=== PATIENT | female | born 1970 | race Caucasian/White ===

== ENCOUNTER → 2020-06-19 15:04 | Outpatient (CLI) | payer OTHER, SELFPAY ==
--- NOTE | ~2020-06-19 | US_ITS ---
US renal BI 06/19/2020 15:25 Procedure: Realtime transabdominal ultrasound of the kidneys and bladder. Indication: Dysuria. UTI. Comparison: No prior studies for comparison. Findings: Renal echotexture is normal bilaterally without hydronephrosis, contour deforming mass or r enal calculus. The right kidney measures 10.6 cm and left kidney measures 11.1 cm. Bladder within no rmal limits. Impression: 1: Unremarkable renal ultrasound. No stones, masses or hydronephrosis. Reviewed, dictated and finalized at location A. Impression: 1: Unremarkable renal ultrasound. No stones, masses or hydronephrosis.
== END ==
PROVIDERS: PCP Family Medicine; Visit Provider Family Medicine
DX: R30.0 Dysuria (principal)
CPT/HCPCS: 76775

== ENCOUNTER → 2021-01-03 14:51 | Outpatient (CLI) | payer OTHER, SELFPAY ==
--- NOTE | ~2021-01-03 | MM_ITS ---
EXAMINATION: MM screening jesús BI w hany HISTORY: Screening mammogram TECHNIQUE: Craniocaudal and mediolateral oblique 3-D tomosynthesis images were obtained and synthetic 2-D images were generated. CAD analysis was submitted and interpreted. COMPARISON: 09/13/2015 bilateral diagnostic digital mammogram and limited left breast ultrasound 06/14/2014, 05/24/2013 bilateral digital screening mammogram BREAST PARENCHYMAL COMPOSITION: There are scattered areas of fibroglandular density. FINDINGS: There are interval bilateral breast masses, some partially obscured by surrounding fibrogla ndular stroma. Bilateral diagnostic mammography is recommended as well as bilateral breast ultrasound examination. IMPRESSION: 1. Bilateral breast masses 2. Bilateral diagnostic mammography and bilateral breast ultrasound examination are recommended. BI-RADS Category 0: Incomplete: Needs additional imaging evaluation. Reviewed, dictated and finalized at location A. 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
== END ==
PROVIDERS: PCP Family Medicine; Visit Provider Obstetrics & Gynecology
DX: Z12.31 Encounter for screening mammogram for malignant neoplasm of breast (principal); R92.8 Other abnormal and inconclusive findings on diagnostic imaging of breast
CPT/HCPCS: 77063; 77067

== ENCOUNTER → 2021-01-25 07:47 | Outpatient (CLI) | payer OTHER, SELFPAY ==
--- NOTE | ~2021-01-25 | MMUS_ITS ---
EXAMINATION: MM diagnostic mammo BI, US breast RT limited, US breast LT complete HISTORY: Bilateral breast masses on screening mammogram TECHNIQUE: Additional 3-D tomosynthesis images of the breasts were performed and synthetic 2-D images were generated. CAD analysis was submitted and interpreted. High resolution limited right and comple te left including subareolar breast ultrasound was performed. COMPARISON: 01/03/2021, 09/13/2015, 06/14/2014 BREAST PARENCHYMAL COMPOSITION: The breasts are heterogeneously dense, which may obscure small masses . FINDINGS: MAMMOGRAPHIC FINDINGS: Left breast: Spot compression views of the breasts demonstrate multiple equal and low-density obscure d masses throughout the breast. The largest identified mass measures 1.6 cm at the 6:00 location in t he posterior third of the breast. Right breast: There are obscured low density masses in the outer breast, the largest of which measure s 1.7 cm in the middle third of the breast at the 6:00 location ULTRASOUND: Left breast: There are multiple cysts in the breast, the largest of which measures 1.5 cm at the 1:00 location. There is a 1.4 cm cluster of microcysts at the 10:00 location 5 cm from the nipple. Right breast: There are multiple cysts of the breast, the largest of which measures 1.7 cm at the 8:0 0 location. IMPRESSION: 1. Multiple cysts of the breasts without mammographic or sonographic evidence of malignancy. 2. Recommend routine screening mammography in one year. BI-RADS Category 2: Benign finding(s). Reviewed, dictated and finalized at location A. IMPRESSION: 1. Multiple cysts of the breasts without mammographic or sonographic evidence o f malignancy. 2. Recommend routine screening mammography in one year. BI-RADS Category 2: Benign finding(s). IMPRESSION: 1. Multiple cysts of the breasts without mammographic or sonographic evidence o f malignancy. 2. Recommend routine screening mammography in one year. BI-RADS Category 2: Benign finding(s).
== END ==
PROVIDERS: PCP Family Medicine; Visit Provider Obstetrics & Gynecology
DX: R92.8 Other abnormal and inconclusive findings on diagnostic imaging of breast (principal)
CPT/HCPCS: 76641; 76642; 77066

== ENCOUNTER 2021-09-05 00:14 | Day surgery (SDC) | payer OTHER, SELFPAY ==
[2021-08-21 12:48] VITALS: BMI 34.5
--- NOTE | 2021-09-04 14:21 | P.PNAN_ITS ---
Anes - Initial Pre Proc Eval Procedure: Operation Date: 09/05/21 08:00 Proposed Procedures p Screening Colonoscopy - Faisal Hart MD Date/Time: 09/04/21 14:21 Surgeon: Faisal Hart MD Pre Op Diagnosis: neoplasm screening Patient Data Age: 51 Gender: F Height: 1.7 m Weight: 100 kg Allergies Allergy/AdvReac Type Severity Reaction Status Date / Time hydrocodone Allergy Unknown Hypertensio Verified 09/05/21 06:45 n Penicillins Allergy Unknown Rash Verified 09/05/21 06:45 Home Medications Medication Instructions Recorded Confirmed Type No Home Medications 04/23/21 09/05/21 History Patient hx anesthesia problems: none Family hx anesthesia problems: none Results Review: All pre-operative results and documents have been reviewed as part of the pre-operative evaluation. [facility] Past Medical History Medical History (Updated 09/04/21 @ 16:15 by Faisal Hart MD) Essential hypertension Gastro-esophageal reflux disease with esophagitis, without bleeding Menorrhagia, premenopausal Microcytic anemia Obesity Scoliosis (and kyphoscoliosis), idiopathic Family History Family History Mother Family history of thyroid disease Hypertension Family history of malignant neoplasm of breast in first degree relative, Onset Age: 40 Father Hypertension Family history of cardiovascular disease, Onset Age: 60 Acute myocardial infarction, Onset Age: 64 Family history of malignant neoplasm Grandparent Family history of cardiovascular disease, Onset Age: 60 Malignant neoplasm of prostate Other Family history of malignant neoplasm of breast No family history of cardiovascular disease Social History Social History Alcohol intake: never Substance use type: does not use Living arrangements: with family Anes - Eval Final PreProcedure Day of Procedure 09/04/21 14:21 Patient weight: obese Heart: regular rate and rhythm Lungs: clear to auscultation and normal air movement Airway: Mallampati scale class II Neurological: alert and oriented Last oral intake: >/= 8 hours ASA classification: III Emergent: no Anesthetic plan: proceed Anesthesia type and monitoring: general GIVS Results Review: All pre-operative results and documents have been reviewed as part of the pre-operative evaluation. Informed Consent: The patient's anesthetic plan and its attendant risks and benefits were discussed with the patient/family/POA. Questions were solicited and answers provided to the satisfaction of the patient/family/POA.
--- NOTE | 2021-09-04 16:14 | PM.HPGS ---
History of Present Illness History of Present Illness Consent: Risks, benefits, and alternatives have been discussed and questions answered. Patient agrees to proceed with procedure. Chief complaint: neoplasm screening Narrative: Melania Boykin is a 51 year old female Referred for colon cancer screening. Her mother and several other family members have had breast cancer Review of Systems Review of Systems: All systems reviewed & are unremarkable except as noted in HPI and below PMFSH Past Medical History Medical History Essential hypertension Gastro-esophageal reflux disease with esophagitis, without bleeding Menorrhagia, premenopausal Microcytic anemia Obesity Scoliosis (and kyphoscoliosis), idiopathic Family History Family History Mother Family history of thyroid disease Hypertension Family history of malignant neoplasm of breast in first degree relative, Onset Age: 40 Father Hypertension Family history of cardiovascular disease, Onset Age: 60 Acute myocardial infarction, Onset Age: 64 Family history of malignant neoplasm Grandparent Family history of cardiovascular disease, Onset Age: 60 Malignant neoplasm of prostate Other Family history of malignant neoplasm of breast No family history of cardiovascular disease Social History Social History Alcohol intake: never Substance use type: does not use Living arrangements: with family Meds Home Medications and Allergies Home Medications Medication Instructions Recorded Confirmed Type No Home Medications 04/23/21 09/05/21 History Allergies Allergy/AdvReac Type Severity Reaction Status Date / Time hydrocodone Allergy Unknown Hypertensio Verified 09/05/21 07:31 n Penicillins Allergy Unknown Rash Verified 09/05/21 07:31 Exam Resp: Auscultation: clear to auscultation bilaterally Cardio: Rate: regular rate Rhythm: regular rhythm GI: GI Palp: Yes Soft to palpation and No Tenderness to palpation present (GI) Assessment and Plan Assessment and plan (1) Colon cancer screening: Code(s): Z12.11 - Encounter for screening for malignant neoplasm of colon Status: Acute Assessment and Plan: Colonoscopy with possible biopsy or polypectomy or cautery or injection of substances.
[2021-09-05 06:45] VITALS: BP 144/100; PULSE 101; RESP 18; TEMP 36.3; O2SAT 99
[2021-09-05] MEDS: LACTATED RINGERS 1,000 ML 150 ML IV CONT (07:06)
[2021-09-05 08:12] VITALS: BP 119/80; PULSE 84; RESP 24; O2SAT 100
[2021-09-05 08:22] VITALS: BP 133/80; PULSE 83; RESP 18; O2SAT 100
[2021-09-05 08:32] VITALS: BP 134/87; PULSE 78; RESP 21; O2SAT 100
== END 2021-09-05 08:43 | disposition home or self-care (01) ==
PROVIDERS: PCP Family Medicine; Visit Provider Internal Medicine Gastroenterology
PROC: 0DJD8ZZ Inspection of Lower Intestinal Tract, Via Natural or Artificial Opening Endoscopic (ICD-10-PCS; CPT 45378; principal; 2021-09-05 08:00)
DX: Z12.11 Encounter for screening for malignant neoplasm of colon (principal); E66.9 Obesity, unspecified; Z68.34 Body mass index [BMI] 34.0-34.9, adult
CPT/HCPCS: 45378; J2704; J7120

== ENCOUNTER 2021-12-27 15:20 | Emergency (ER) | payer OTHER, SELFPAY ==
--- NOTE | ~2021-12-27 | XR_ITS ---
EXAMINATION: XR chest 2V 12/27/2021 16:11 INDICATION: Weakness and left arm pain PROCEDURE: 2 view chest COMPARISON: 06/14/2007 FINDINGS: The lungs are clear. The cardiomediastinal silhouette is within normal limits. There are no pleural effusions. There is no pneumothorax suspected. IMPRESSION: 1: NO ACUTE CARDIOPULMONARY DISEASE. Reviewed, dictated and finalized at location A. 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
--- NOTE | 2021-12-27 15:24 | ECG_ITS ---
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
[2021-12-27 15:31] VITALS: BP 153/98; PULSE 102; RESP 18; TEMP 37.1; O2SAT 100
[2021-12-27 16:07] LABS: Basophils Percent Auto 0.6 % (0.2-1.2); Eosinophils Absolute Auto 0.1 K/mm3 (0-0.3); Eosinophils Percent Auto 1.3 % (0-4.4); Hematocrit 41.3 % (37.0-47.0); Hemoglobin 13.4 g/dL (12.0-15.0); Immature Granulocyte Absolute 0.01 K/mm3 (0.00-0.031); Immature Granulocyte Percent A 0.2 % (0-0.5); Lymphocytes Absolute Auto 1.42 K/mm3 (0.9-3.2); Lymphocytes Percent Auto 26.3 % (18.3-44.2); Mean Corpuscular HGB Conc 32.4 g/dl (32-36); Mean Corpuscular Volume 86.4 fl (80-100); Monocytes Absolute Auto 0.3 K/mm3 (0.1-0.6); Monocytes Percent Auto 6.1 % (2.6-8.5); Neutrophils Absolute Auto 3.5 K/mm3 (1.3-6.7); Neutrophils Percent Auto 65.5 % (45.5-73.1); Platelet Count Result 272 k/mm3 (150-375); Red Blood Count 4.78 M/mm3 (4.2-5.4); Red Cell Distribution Width 12.6 % (11.5-14.5); White Blood Count 5.4 K/mm3 (4.5-10.0)
[2021-12-27 16:17] LABS: Alanine Aminotransferase 17 U/L (4-35); Albumin Level 4.2 g/dL (3.5-5.1); Alkaline Phosphatase 83 U/L (38-126); Anion Gap 8 mmol/L (8-16); Aspartate Amino Transferase 31 U/L (14-36); Bilirubin,Total 0.9 mg/dL (0.2-1.3); Blood Urea Nitrogen 14 mg/dL (7-17); Calcium 8.5 mg/dL (8.4-10.2); Carbon Dioxide 25 mmol/L (22-30); Chloride 105 mmol/L (98-107); Estimated CRCL calculation 80 ml/min; Estimated Glomerular Filt Rate > 60; Glucose 97 mg/dL (65-110); Potassium 3.4 mmol/L (3.4-5.0); Sodium 138 mmol/L (137-145)
[2021-12-27 16:28] LABS: Troponin I < 0.012 ng/mL (0.000-0.034)
[2021-12-27 16:48] LABS: Add Urine Microscopic? YES; Appearance Urine Cloudy (Clear); Bacteria Urine Trace /hpf; Bilirubin Urine Negative (Negative); Blood Urine 1+ (Negative); Color Urine Yellow (Yellow); Glucose Urine UA Negative (Negative); Ketones Urine Negative (Negative); Leukocyte Esterase Ur 1+ LEU/UL (Negative); Mucus Urine Heavy /lpf; Nitrate Urine Negative (Negative); Protein Urine Negative (Negative); Specific Grav Ur 1.027 (1.001-1.035); Squamous Epithelial Cell Urine Few /hpf (Few); Urobilinogen Urine Negative mg/dL (<2.0)
--- NOTE | 2021-12-27 17:10 | ED.WEAKNESS ---
HPI - Weakness General Chief complaint: Weakness Stated complaint: Weakness Time Seen by Provider: 12/27/21 15:56 Source: patient History of Present Illness HPI Narrative: Patient presents with dizziness. Patient reports she was walking up the stairs at school felt lightheaded and queasy there she came to the ER for evaluation. On arrival she reports she is feeling improved. Reports she has had intermittent dizzy spells without clear triggering events. That are not always associated with physical activity or position change. She does note them worse in the morning. Patient also reports she feels like she is going through menopause unsure of as a contributing factor. Reports recently she has been feeling well no recent changes appetite no nausea vomiting diarrhea or urinary symptoms denies any chest pain shortness of breath or abdominal pain associated with her events. She did not fall or strike her head. Denies any recent hospitalizations history of blood clots, recent surgeries, recent long travel, recent family history of sudden cardiac . Related Data Allergies Allergy/AdvReac Type Severity Reaction Status Date / Time hydrocodone Allergy Unknown Hypertensio Verified 09/05/21 07:31 n Penicillins Allergy Unknown Rash Verified 09/05/21 07:31 Review of Systems Review of Systems: CONSTITUTIONAL: Denies fever, chills, or sweats. EYES: Denies visual changes, redness, or discharge. ENT: Denies rhinorrhea, congestion, sore throat, or otalgia. CARDIOVASCULAR: Denies chest pain, palpitations, or edema. RESPIRATORY: Denies cough or dyspnea. GASTROINTESTINAL: Denies abdominal pain, nausea, vomiting, or diarrhea. GENITOURINARY: Denies dysuria or hematuria. SKIN: Denies rash or itching. MUSCULOSKELETAL: Denies back pain, joint pain, or myalgia. NEUROLOGIC: Denies headache, numbness, or focal weakness. PSYCHIATRIC: Denies anxiety or depression. All systems reviewed & are unremarkable except as noted in HPI and below PMFSH Past Medical History Medical History Essential hypertension Gastro-esophageal reflux disease with esophagitis, without bleeding Menorrhagia, premenopausal Microcytic anemia Obesity Scoliosis (and kyphoscoliosis), idiopathic Family History Family History Mother Family history of thyroid disease Hypertension Family history of malignant neoplasm of breast in first degree relative, Onset Age: 40 Father Hypertension Family history of cardiovascular disease, Onset Age: 60 Acute myocardial infarction, Onset Age: 64 Family history of malignant neoplasm Grandparent Family history of cardiovascular disease, Onset Age: 60 Malignant neoplasm of prostate Other Family history of malignant neoplasm of breast No family history of cardiovascular disease Social History Social History Alcohol intake: never Substance use type: does not use Exam Narrative: GENERAL: Well-appearing, well-nourished, and in no acute distress. HEAD: Normocephalic, atraumatic. EYES: PERRLA and EOMI. ENT: Nares clear, no rhinorrhea or epistaxis. Mucous membranes moist. NECK: Supple. No masses. No JVD CHEST: Clear to auscultation. No respiratory distress. No wheezes rales or rhonchi HEART: Regular rate and rhythm. No murmur heard. Normal peripheral pulses. ABDOMEN: Soft, nontender, nondistended, normal active bowel sounds. EXTREMITIES: Normal range of motion. No edema. SKIN: Warm, dry, no rash. NEURO: No focal deficits. Alert and oriented x3. PSYCH: Normal mood and affect. Course Reevaluation(s) Reevaluation #1: Patient continues to feel well results and plan reviewed with patient. Patient is comfortable outpatient plan. Patient educated on hypertension Date: 12/27/21 Time: 17:13 Vital Signs Vital signs: Vital Signs Temperature 37.1 C
[2021-12-27 17:14] VITALS: BP 138/78; PULSE 76; RESP 18; O2SAT 100
[2021-12-27 17:31] VITALS: BP 142/78; PULSE 78; RESP 18; O2SAT 98
== END 2021-12-27 17:31 | disposition home or self-care (01) ==
PROVIDERS: General Practice; Emergency Provider Emergency Medicine; PCP Family Medicine
DX: R42 Dizziness and giddiness (principal); I10 Essential (primary) hypertension; K21.00 Gastro-esophageal reflux disease with esophagitis, without bleeding; D50.9 Iron deficiency anemia, unspecified; E66.9 Obesity, unspecified; Z68.35 Body mass index [BMI] 35.0-35.9, adult; M41.20 Other idiopathic scoliosis, site unspecified; R94.31 Abnormal electrocardiogram [ECG] [EKG]
CPT/HCPCS: 36415; 71046; 80053; 81001; 84484; 85025; 87086; 87088; 93005; 99284

== ENCOUNTER → 2022-02-26 11:56 | Outpatient (CLI) | payer OTHER, SELFPAY ==
--- NOTE | ~2022-02-26 | MM_ITS ---
EXAMINATION: MM screening jesús BI w hany HISTORY: Screening mammogram TECHNIQUE: Craniocaudal and mediolateral oblique 3-D tomosynthesis images were obtained and synthetic 2-D images were generated. CAD analysis was submitted and interpreted. COMPARISON: 01/25/2021 Limited right and complete left breast ultrasound bilateral diagnostic mammogram 01/03/2021 bilateral screening mammogram BREAST PARENCHYMAL COMPOSITION: There are scattered areas of fibroglandular density. FINDINGS: There are scattered bilateral low density masses with halo sign, consistent with bilateral benign lesions, likely cysts. There are multiple bilateral scattered benign calcifications. There is no evidence of suspicious mass, calcification, or architectural distortion to suggest malign consuelo in either breast. There has been no suspicious interval change. IMPRESSION: 1. No benign relatively stable low-density circumscribed masses with halo signs, most consistent with cyst. Scattered bilateral benign calcifications. No mammographic evidence of malignancy. 2. Recommend routine screening mammography in one year. BI-RADS Category 2: Benign Reviewed, dictated and finalized at location A. IMPRESSION: 1. No benign relatively stable low-density circumscribed masses with halo signs , most consistent with cyst. Scattered bilateral benign calcifications. No mamm ographic evidence of malignancy. 2. Recommend routine screening mammography in one year. BI-RADS Category 2: Benign
== END ==
PROVIDERS: PCP Family Medicine; Visit Provider Obstetrics & Gynecology
DX: Z12.31 Encounter for screening mammogram for malignant neoplasm of breast (principal)
CPT/HCPCS: 77063; 77067

== ENCOUNTER 2023-05-21 08:07 | Outpatient (CLI) | payer OTHER, SELFPAY ==
--- NOTE | 2023-05-21 08:30 | ECG_ITS ---
Measurements Intervals [place] Rate: 81 P: 38 [place]: 169 QRS: 2 QRSD: 91 T: 8 QT: 366 QTc: 427 Interpretive Statements SINUS RHYTHM LOW QRS VOLTAGE IN PRECORDIAL LEADS CONSIDER INFERIOR INFARCT, AGE INDETERMINATE BASELINE ARTIFACT- I, II, AVL, AVF ABNORMAL ECG COMPARED TO ECG 12/27/2021 15:26:54 NO SIGNIFICANT CHANGES Electronically Signed On 05-21-2023 8:46:44 CDT by Kash Cheung D.O.
[2023-05-21 08:51] LABS: Alanine Aminotransferase 19 U/L (6-35); Albumin Level 3.9 g/dL (3.5-5.1); Alkaline Phosphatase 75 U/L (38-126); Anion Gap 8 mmol/L (8-16); Aspartate Amino Transferase 23 U/L (14-36); Bilirubin,Total 0.9 mg/dL (0.2-1.3); Blood Urea Nitrogen 15 mg/dL (7-17); Calcium 8.8 mg/dL (8.4-10.2); Carbon Dioxide 24 mmol/L (22-30); Chloride 106 mmol/L (98-107); Estimated Glomerular Filt Rate > 60; Glucose 93 mg/dL (65-110); Sodium 138 mmol/L (137-145)
== END 2023-05-21 08:08 | disposition home or self-care (01) ==
LOC: ANHSURGERY 08:10
PROVIDERS: PCP Family Medicine; Visit Provider Obstetrics & Gynecology
DX: N93.9 Abnormal uterine and vaginal bleeding, unspecified (principal); I10 Essential (primary) hypertension; Z01.818 Encounter for other preprocedural examination
CPT/HCPCS: 36415; 80053; 86850; 86900; 86901; 93005

== ENCOUNTER 2023-05-27 02:12 | Day surgery (SDC) | payer OTHER, SELFPAY ==
[2023-05-19 12:50] VITALS: BMI 35.4
--- NOTE | 2023-05-19 12:57 | PC.NURSE ---
Report to the Outpatient Waiting Room, entrance under the green pavilion located off [facility], at time 11:00 on date 05/27/23. Planned Procedure Time: 1:00. Time changes happen often and if your time is changed the preop area will call you the afternoon before. - You and your visitor will be asked to self-screen and do not enter if you have any COVID symptoms. - A mask is optional within the hospital at this time. Patients may have clear liquids (water, carbonated beverages, clear teas, apple juice) until 3 hours prior to surgery (10:00) with a maximum of 20 ounces. - No food from midnight until time of surgery Take the following medications with a SIP of water the morning of surgery: NONE DO NOT STOP ANY OF YOUR OTHER PRESCRIPTION MEDICATIONS PRIOR TO SURGERY ?EXCEPT THE FOLLOWING Medications to discontinue per physician: N/A Date to take last dose: N/A Please no make-up, nail namibian, hairspray, perfume, deodorant, or body powder the day of surgery. No jewelry (including any body piercings) or valuables the day of surgery, leave them at home. Please take a shower or bath the night before, or the morning of, surgery with an antibacterial soap. Wear comfortable, loose fitting clothing. - Jewelry must be removed prior to entering the operating room. Rings and piercings that are not removed may be cut off. - The hospital will not accept responsibility for valuables. - Please leave all valuables, including medications, at home the day of surgery. If you are going home after surgery, a licensed lead driver must drive you home. - NO public transportation without another adult if you receive anesthesia. - We recommend that an adult stay with you for 24 hours following discharge. - We also recommend that you do not drive, make important decision, drink alcoholic beverages, or take any drugs that were not prescribed by your health care provider for at least 24 hours after your discharge time. Follow any additional instructions given to you from your surgeon. If you or anyone in your household have experienced Covid symptoms in the past week, please notify your surgeon or the nurse liaison at the phone number below for possible testing. Telephone instructions given to PT - CICI VILLEDA and asked if any additional questions and then verbalized understanding. Patient advised to call surgeon office or pre surgery nurse liaison [phone] if any additional questions.
--- NOTE | 2023-05-26 14:16 | P.PNAN_ITS ---
Anes - Initial Pre Proc Eval Procedure: Operation Date: 05/27/23 13:00 Proposed Procedures p Total Laparoscopic Hysterectomy with Bilateral Salpingo-Oophorectomy - Tanya Garcia MD Date/Time: 05/26/23 14:16 Surgeon: Tanya Garcia MD Pre Op Diagnosis: abnormal uterine bleeding Patient Data Age: 53 Gender: F Height: 1.69 m Weight: 101.2 kg Allergies Allergy/AdvReac Type Severity Reaction Status Date / Time hydrocodone Allergy Unknown Hypertensio Verified 05/27/23 11:08 n Penicillins Allergy Unknown Rash Verified 05/27/23 11:08 hydrochlorothiazide AdvReac Severe leg Verified 05/27/23 11:08 [From Maxzide] cramps, nausea triamterene [From Maxzide] AdvReac Severe leg Verified 05/27/23 11:08 cramps, nausea Home Medications Medication Instructions Recorded Confirmed Type olmesartan 5 mg tablet 5 mg PO DAILY #90 tabs 10/16/22 05/27/23 Rx estradiol 1 mg tablet 1 mg PO HS 05/19/23 05/27/23 History progesterone micronized 100 mg 200 mg PO HS 05/19/23 05/27/23 History capsule Patient hx anesthesia problems: none Family hx anesthesia problems: none Results Review: All pre-operative results and documents have been reviewed as part of the pre- operative evaluation. [facility] [place] Past Medical History Medical History (Updated 05/26/23 @ 14:17 by Rj Johns DO) CVA (cerebral vascular accident) Degeneration of cervical intervertebral disc Hematuria resolved Hypertension Menorrhagia, premenopausal Microcytic anemia resolved Other intervertebral disc displacement, lumbar region Pre-syncope Scoliosis (and kyphoscoliosis), idiopathic Family History Family History Mother Family history of thyroid disease Hypertension Family history of malignant neoplasm of breast in first degree relative, Onset Age: 40 Father Hypertension Family history of cardiovascular disease, Onset Age: 60 Acute myocardial infarction, Onset Age: 64 Family history of malignant neoplasm Grandparent Family history of cardiovascular disease, Onset Age: 60 Malignant neoplasm of prostate Other Family history of malignant neoplasm of breast No family history of cardiovascular disease Social History Social History (Updated 04/24/22 @ 09:30 by Leni Bradshaw [facility]) Smoking status: Never smoker Alcohol intake: never Substance use: never Substance use type: does not use Living arrangements: with family Spiritual care concerns: No Anes - Eval Final PreProcedure Day of Procedure 05/26/23 14:16 Patient weight: obese Heart: regular rate and rhythm Lungs: clear to auscultation Airway: Mallampati scale class II Neurological: alert and oriented Last oral intake: >/= 8 hours ASA classification: III Emergent: no Anesthetic plan: proceed Anesthesia type and monitoring: general ETT and standard monitoring Results Review: All pre-operative results and documents have been reviewed as part of the pre- operative evaluation. Informed Consent: The patient's anesthetic plan and its attendant risks and benefits were discussed with the patient/family/POA. Questions were solicited and answers provided to the satisfaction of the patient/family/POA.
[2023-05-27] VITALS (12 sets, daily range): BP systolic 104–145; BP diastolic 52–96; PULSE 59–107; RESP 12–18; TEMP 36.1–37.7; O2SAT 97–100
--- NOTE | ~2023-05-27 | XR_ITS ---
EXAMINATION: XR abdomen/kub 1V DATE: 05/27/2023 15:55 INDICATION: Foreign body. TECHNIQUE: A supine view of the abdomen on 2 radiographs was obtained. COMPARISON: None. FINDINGS: There are no dilated loops of bowel. There is a small volume of stool in the colon. IMPRESSION: 1. No radiopaque foreign body. Reviewed, dictated and finalized at location B.
--- NOTE | ~2023-05-27 | XR_ITS ---
EXAMINATION: CYSTOGRAM DATE: 05/28/2023 09:28 INDICATION: Status post hysterectomy. Assess for bladder leak. TECHNIQUE: Initial welfare adviser radiograph of the pelvis was performed. There was retrograde administration of Omnipaque 350 mixed with saline contrast into patient's existing Whitman catheter. Fluoroscopic amairani ges of the pelvis were obtained. A post-void image was also performed. Fluoroscopy exposure time was 0.4 minutes. A total of 1 overhead radiographs and 19 fluoroscopic images were obtained. FINDINGS: Contrast fills the bladder which demonstrates a normal contour with smooth mucosal surface and no vero dent bladder leak. No vesicoureteral reflux. Normal bowel gas pattern. Phlebolith in the right hemipe lvis. IMPRESSION: Normal cystogram with no evident bladder leak. Reviewed, dictated and finalized at location A.
[2023-05-27] MEDS: ACETAMINOPHEN 500 MG TABLET 1000 MG PO (11:12)
[2023-05-27] MEDS: KETOROLAC 15 MG/ML VIAL (*BKC) IV PUSH (11:41)
[2023-05-27] MEDS: LACTATED RINGERS 1,000 ML 30 ML IV CONT ×2 (11:41→15:30)
--- NOTE | 2023-05-27 11:44 | WPDHPUPDATE1 ---
History and Physical Update Update Date/Time: 05/27/23 11:44 History and Physical has been reviewed, including an updated exam of the patient. There are NO changes in the patient's condition. Risks, benefits, and alternatives have been discussed and questions answered. Patient agrees to proceed with procedure.
--- NOTE | 2023-05-27 15:26 | W.PM.PROC2 ---
Procedure Note - Detailed Date of Procedure 05/27/23 Pre-op Diagnosis abnormal uterine bleeding Post-op Diagnosis Same Procedure Performed Total laparoscopic hysterectomy and bilateral salpingo-oophorectomy. Surgeon Tanya Garcia MD Anesthesia General Indications Abnormal uterine bleeding Findings enlarged uterus, scarred bilateral pelvic sidewalls, normal appearing ovaries and tubes. Description of Procedure This patient was taken to the operating room. She was prepped and draped in the dorsal lithotomy position after induction of general anesthesia. The uterine manipulator and Bailey cup were placed. This was done with a speculum and tenaculum. The speculum was placed. The cervix was grasped with a tenaculum. The stay sutures were placed at 3 and 9:00 a.m.. The stay sutures of 0 Vicryl were brought through the appropriately sized Bailey cup. The tip of the DEEPIKA manipulator was placed in the intrauterine cavity. The cup was slid into place around the cervix and into the fornices. It was locked into place. The sutures were then wrapped around the handle and tied under tension. A 5 mm skin incision was made in the left upper quadrant the abdomen. A 5 mm trocar was inserted into the intrauterine cavity under direct visualization of the scope. Pneumoperitoneum was achieved. A left lower quadrant 11 mm incision was made with scalpel. An 11 mm trocar was inserted into the anterior abdominal cavity under direct visualization the scope. A 5 mm infraumbilical incision was made with a scalpel and a 5 mm trocar was inserted the intra-abdominal cavity under direct visualization of the scope. Bilateral ureteral lysis was performed. This was done from the pelvic brim down to the uterine artery. This was done with careful dissection using sharp and blunt dissection. The infundibulopelvic ligaments were isolated after identification of the ureters bilaterally. These infundibulopelvic ligaments were cauterized and transected with LigaSure cautery. The para ovarian tissue was cauterized and transected with LigaSure cautery bilaterally. Moving around the ovary into the broad ligament the tissue was cauterized transected with LigaSure cautery. The round ligaments were cauterized transected with LigaSure cautery this was all done in a bilateral fashion. In a stepwise fashion along the lateral aspects of the uterus the round ligament and broad ligaments were cauterized transected down to the level of the uterine arteries. A bladder flap was created in the bladder was moved distally to the end of the cervix and over the Bailey cup. The bilateral uterine arteries were cauterized and transected. Colpotomy was then performed. In a circumferential fashion the vagina was transected using unipolar cautery. The incision was made down on the Bailey cup. The uterus, cervix, fallopian tubes and ovaries were taken out through the vagina. A pneumo occluder was placed in the vagina. The vaginal cuff was closed with a 0 V lock suture in a running fashion. The pelvis was irrigated with copious amounts antibiotic irrigation. The ureters were again examined and found to be intact and flowing freely under the uterine arteries into the bladder. The bladder was intact. It was examined directly. The vagina was irrigated with Betadine solution after removal of the Pneumo occluder. The patient was taken to recovery room. She was stable condition. Sponge lap and needle counts were correct x2. Drains Yes Packing No Pathology Yes Complications No immediate complications Condition Stable Disposition Floor
--- NOTE | 2023-05-27 16:14 | SUR.PHASEI ---
1538 - spoke to dr. kelley in regards to radiology order for jiménez catheter tip. abdominal 1V ordered
[2023-05-27] MEDS: KETOROLAC 30 MG/ML VIAL (*BKC) IV PUSH (18:17)
[2023-05-27] MEDS: DEXTROSE 5%/0.45% SOD CHL 1,000 ML 125 ML IV CONT (18:17)
[2023-05-27] MEDS: estradioL 1 MG TABLET PO (21:01)
[2023-05-27] MEDS: ACETAMINOPHEN 325 MG TABLET 650 MG PO (21:10)
[2023-05-28 00:20] VITALS: BP 124/76; PULSE 98; RESP 18; TEMP 37.6; O2SAT 96
[2023-05-28] MEDS: KETOROLAC 30 MG/ML VIAL (*BKC) IV PUSH (00:29)
[2023-05-28 04:00] VITALS: BP 97/60; PULSE 78; RESP 18; TEMP 37.3; O2SAT 96
--- NOTE | 2023-05-28 08:09 | WPDANESPN ---
Anes - Prog Note Post-Op Date/Time: 05/28/23 08:09 Cardiovascular status: normal Respiratory status: normal Airway patency: baseline Mental status: baseline Post-Op hydration status: normal and other (catheter in place to get cystogram today) Vital Signs: Last Vital Signs Temp 37.3 C 05/28/23 04:00 Pulse 78 05/28/23 04:00 Resp 18 05/28/23 04:00 BP 97/60 L 05/28/23 04:00 Pulse Ox 96 05/28/23 04:00 O2 Del Method Room Air 05/28/23 04:00 O2 Flow Rate 8 05/27/23 15:45 Pain Score (VAS): 2 I/O: Intake & Output 05/27/23 05/28/23 05/28/23 23:59 07:59 15:59 Intake Total 100 1700 Output Total 60 1050 Balance 40 650 Post-procedural complaints: none Patient Feedback: Patient satisfied with anesthetic care.
[2023-05-28 08:10] VITALS: BP 136/78; PULSE 80; RESP 18; TEMP 36.9; O2SAT 99
--- NOTE | 2023-05-28 08:25 | PM.GYNPNOP ---
CAPACITOR INSPECTOR - A/P Postoperative Procedures: Procedures Operation Date: 05/27/23 13:00 Actual Procedure Side Surgeon p Total Laparoscopic Hysterectomy with Bilateral Salpingo-Oophorectomy Tanya Garcia MD Postoperative day: 1 Postoperative status: doing well Postoperative plan: see orders Time Spent With Patient Time: Total time spent is greater than 50% in coordination of care (as documented) at patient's floor/unit and/or counseling patient: Time with patient: less than 15 minutes CAPACITOR INSPECTOR- PN:Subj Post-Op Subjective Date/time seen: 05/28/23 08:25 Subjective: patient reports feeling better, patient has no complaints and pain is well controlled Exam Const: General: healthy appearing, comfortable and no acute distress Resp: Auscultation: clear to auscultation bilaterally, no rales, no rhonchi and no wheezes Cardio: Rate: regular rate Heart sounds: no click, no murmurs and no rubs GI: Inspection: non-distended Auscultation: normal bowel sounds Extrem: General: normal to inspection, no pedal edema and no calf tenderness CAPACITOR INSPECTOR - PN: Obj Data Vital Signs Vital Signs: Vital Signs - 24 hr 05/27/23 12:21 05/27/23 15:30 05/27/23 15:45 Temperature 97.9 F 97.0 F L Pulse Rate 92 80 60 Respiratory Rate 16 12 18 Blood Pressure 145/96 H 117/66 124/77 Pulse Oximetry 100 100 100 Oxygen Delivery Room Air Simple Face Mask Simple Face Mask Oxygen Flow Rate 8 8 05/27/23 16:00 05/27/23 16:15 05/27/23 16:30 Temperature Pulse Rate 59 L 59 L 66 Respiratory Rate 18 16 18 Blood Pressure 122/75 119/70 117/79 Pulse Oximetry 100 100 99 Oxygen Delivery Room Air Room Air Oxygen Flow Rate 05/27/23 16:45 05/27/23 17:00 05/27/23 17:15 Temperature Pulse Rate 70 77 81 Respiratory Rate 18 14 18 Blood Pressure 123/83 119/89 136/76 Pulse Oximetry 98 100 97 Oxygen Delivery Room Air Room Air Room Air Oxygen Flow Rate 05/27/23 17:30 05/27/23 17:45 05/27/23 20:55 Temperature 99.0 F 99.8 F H Pulse Rate 75 90 107 H Respiratory Rate 16 16 16 Blood Pressure 124/76 117/83 104/52 L Pulse Oximetry 98 98 Oxygen Delivery Room Air Oxygen Flow Rate 05/27/23 21:00 05/28/23 00:20 05/28/23 00:20 Temperature 99.6 F Pulse Rate 98 98 Respiratory Rate 18 18 Blood Pressure 124/76 Pulse Oximetry 96 96 Oxygen Delivery Room Air Room Air Oxygen Flow Rate 05/28/23 04:00 05/28/23 04:00 Temperature 99.2 F Pulse Rate 78 78 Respiratory Rate 18 18 Blood Pressure 97/60 L Pulse Oximetry 96 96 Oxygen Delivery Room Air Oxygen Flow Rate Intake/Output Intake/Output: Intake & Output 05/25/23 05/26/23 05/27/23 05/28/23 23:59 23:59 23:59 23:59 Intake Total 100 1700 Output Total 60 1050 Balance 40 650 Meds/Results Medications: Active Medications Generic Name Dose Route Start Last Admin Trade Name Freq PRN Reason Stop Dose Admin Acetaminophen 650 mg 05/27/23 21:08 05/27/23 21:10 Acetaminophen 325 Mg Tablet PO 650 mg Q4H PRN Administration Mild Pain (1-3) or Fever Estradiol 1 mg 05/27/23 21:00 05/27/23 21:01 Estradiol 1 Mg Tablet PO 1 mg HS JACQUELYN Administration Dextrose/Sodium Chloride 1,000 mls @ 125 mls/hr 05/27/23 17:36 05/28/23 02:24 Dextrose 5% Sodium Chloride 0.45% IV CONT Infused .Q8H JACQUELYN Infusion Ibuprofen 600 mg 05/27/23 17:36 Ibuprofen 600 Mg Tablet PO Q6H PRN Cramping Ketorolac Tromethamine 30 mg 05/27/23 17:36 05/28/23 00:29 Ketorolac 30 Mg/Ml Vial (*[facility]) IV PUSH 06/01/23 17:35 30 mg Q6H PRN Administration Pain Rated 4-6 Naloxone HCl 0.1 mg 05/27/23 17:36 Naloxone Hcl 0.4 Mg/Ml Vial IV PUSH Q2M PRN Respiratory rate less than 10 Olmesartan 5 mg 05/28/23 09:00 Olmesartan Medoxomil 5 Mg Tablet PO DAILY JACQUELYN Ondansetron HCl 4 mg 05/27/23 17:36 Ondansetron Inj 4 Mg/2 Ml Vial IV PUSH Q6H PRN Nausea And Vomiting Simethicone 80 mg 05/28/23 00:46 Simethi
[2023-05-28] MEDS: IBUPROFEN 600 MG TABLET PO (08:41)
[2023-05-28] MEDS: SIMETHICONE 80 MG TAB.CHEW PO (08:41)
[2023-05-28] MEDS: oxyCODONE/ACETAMINOPHEN (*CRX) 5-325 MG TABLET 1 TABLET PO ×2 (08:42→11:47)
[2023-05-28 11:30] VITALS: BP 129/90; PULSE 90; RESP 18; TEMP 36.8; O2SAT 100
== END 2023-05-28 12:20 | disposition home or self-care (01) ==
LOC: ANHSURGERY 10:57 → ANHOB2 17:37
PROVIDERS: PCP Family Medicine; Visit Provider Obstetrics & Gynecology
PROC: 0UT9FZZ Resection of Uterus, Via Natural or Artificial Opening With Percutaneous Endoscopic Assistance (ICD-10-PCS; CPT 58571; principal; 2023-05-27 13:00)
DX: N93.9 Abnormal uterine and vaginal bleeding, unspecified (principal); D25.1 Intramural leiomyoma of uterus; Z86.73 Personal history of transient ischemic attack (TIA), and cerebral infarction without residual deficits; I10 Essential (primary) hypertension; Z79.891 Long term (current) use of opiate analgesic; E66.9 Obesity, unspecified; Z68.35 Body mass index [BMI] 35.0-35.9, adult
CPT/HCPCS: 58571; 36415; 51600; 74018; 74430; 80053; 86850; 86900; 86901; 88307; 93005; 99199; A9270; J1100; J1885; J2250; J2405; J2704; J3010; J7030; J7120; Q9967

== ENCOUNTER → 2023-06-05 10:27 | Outpatient (CLI) | payer OTHER, SELFPAY ==
--- NOTE | ~2023-06-05 | MM_ITS ---
EXAMINATION: MM screening jesús BI w hany HISTORY: Screening mammogram, family history of breast cancer in her mother. TECHNIQUE: Craniocaudal and mediolateral oblique 3-D tomosynthesis images were obtained and synthetic 2-D images were generated. CAD analysis was submitted and interpreted. COMPARISON: 02/26/2022, 01/25/2021, 01/03/2021 BREAST PARENCHYMAL COMPOSITION: There are scattered areas of fibroglandular density. FINDINGS: Multiple bilateral breast cysts are again seen. No suspicious mass, calcification, or archi tectural distortion are identified in either breast to suggest malignancy. There has been no suspicio us interval change. IMPRESSION: 1. No mammographic evidence of malignancy. 2. Recommend routine screening mammography in one year. BI-RADS Category 2: Benign finding(s). Reviewed, dictated and finalized at location A.
== END ==
PROVIDERS: PCP Family Medicine; Visit Provider Obstetrics & Gynecology
DX: Z12.31 Encounter for screening mammogram for malignant neoplasm of breast (principal)
CPT/HCPCS: 77063; 77067

== ENCOUNTER 2023-10-09 03:56 | Day surgery (SDC) | payer OTHER, SELFPAY ==
--- NOTE | 2023-10-07 07:53 | PM.IMHP ---
H&P: HPI History of Present Illness Date/Time: 10/07/23 07:53 Chief Complaint: Stress incontinence Narrative: 53-year-old stress incontinence. She desires surgical correction Review of Systems Review of Systems: All systems reviewed & are unremarkable except as noted in HPI and below PMFSH Past Medical History Medical History CVA (cerebral vascular accident) Degeneration of cervical intervertebral disc Hematuria resolved Hypertension Menorrhagia, premenopausal Microcytic anemia resolved Other intervertebral disc displacement, lumbar region Pre-syncope Scoliosis (and kyphoscoliosis), idiopathic Surgical History Surgical History S/P laparoscopic hysterectomy 8 includes cervix, ovaries, tubes Family History Family History Mother Family history of thyroid disease Hypertension Family history of malignant neoplasm of breast in first degree relative, Onset Age: 40 Father Hypertension Family history of cardiovascular disease, Onset Age: 60 Acute myocardial infarction, Onset Age: 64 Family history of malignant neoplasm Grandparent Family history of cardiovascular disease, Onset Age: 60 Malignant neoplasm of prostate Other Family history of malignant neoplasm of breast No family history of cardiovascular disease Social History Social History Smoking status: Never smoker Alcohol intake: never Substance use: never Substance use type: does not use Living arrangements: with family Spiritual care concerns: No Meds Home Medications and Allergies Home Medications Medication Instructions Recorded Confirmed Type estradiol 1 mg tablet 1 mg PO HS 05/19/23 05/27/23 History oxycodone-acetaminophen 5 mg-325 1 tablet PO Q4H PRN pain #25 tabs 05/28/23 Rx mg tablet olmesartan 5 mg tablet See Rx Instructions .Route 08/19/23 Rx .COMPLEX #90 tabs Allergies Allergy/AdvReac Type Severity Reaction Status Date / Time hydrocodone Allergy Unknown Hypertensio Verified 05/27/23 11:08 n Penicillins Allergy Unknown Rash Verified 05/27/23 11:08 hydrochlorothiazide AdvReac Severe leg Verified 05/27/23 11:08 [From Maxzide] cramps, nausea triamterene [From Maxzide] AdvReac Severe leg Verified 05/27/23 11:08 cramps, nausea Vital Signs no acute distress normal breathing alert and oriented x3 urethral mobility noted Assessment and Plan Assessment and plan (1) TATIANA (stress urinary incontinence, female): Code(s): N39.3 - Stress incontinence (female) (male) Status: Acute Assessment and Plan: urethral sling. Understands risks of bleeding, infection, damage to organs, damage to the urinary tract, vaginal mesh extrusion, urinary tract mesh erosion, obstructive voiding requiring secondary procedure, hip and leg pain, dyspareunia. Agrees to proceed
--- NOTE | 2023-10-07 11:16 | PC.NURSE ---
Report to the Outpatient Waiting Room, entrance under the green pavilion located off [facility], at time ___6am____ on date __10/09 . Planned Procedure Time: 730___. Time changes happen often and if your time is changed the preop area will call you the afternoon before. - You and your visitor will be asked to self-screen and do not enter if you have any COVID symptoms. - A mask is optional within the hospital at this time. Patients may have clear liquids (water, carbonated beverages, clear teas, apple juice) until 3 hours prior to surgery with a maximum of 20 ounces. stop 5am - No food from midnight until time of surgery Take the following medications with a SIP of water the morning of surgery: take nothing DO NOT STOP ANY OF YOUR OTHER PRESCRIPTION MEDICATIONS PRIOR TO SURGERY ?EXCEPT THE FOLLOWING Medications to discontinue per physician NA Date to take last dose Please no make-up, nail romanian, hairspray, perfume, deodorant, or body powder the day of surgery. No jewelry (including any body piercings) or valuables the day of surgery, leave them at home. Please take a shower or bath the night before, or the morning of, surgery with an antibacterial soap. Wear comfortable, loose fitting clothing. Children are encouraged to wear pajamas. - Jewelry must be removed prior to entering the operating room. Rings and piercings that are not removed may be cut off. - The hospital will not accept responsibility for valuables. - Please leave all valuables, including medications, at home the day of surgery. If you are going home after surgery, a licensed front load trash truck driver must drive you home. - NO public transportation without another adult if you receive anesthesia. - We recommend that an adult stay with you for 24 hours following discharge. - We also recommend that you do not drive, make important decision, drink alcoholic beverages, or take any drugs that were not prescribed by your health care provider for at least 24 hours after your discharge time. Follow any additional instructions given to you from your surgeon. If you or anyone in your household have experienced Covid symptoms in the past week, please notify your surgeon or the nurse liaison at the phone number below for possible testing. Telephone instructions given to patient and asked if any additional questions and then verbalized understanding. Patient advised to call surgeon office or pre surgery nurse liaison [phone] if any additional questions.
[2023-10-07 11:22] VITALS: BMI 36.3
[2023-10-09] VITALS (8 sets, daily range): BP systolic 109–145; BP diastolic 66–100; PULSE 65–89; RESP 10–20; TEMP 36.4–36.9; O2SAT 97–100
[2023-10-09] MEDS: LACTATED RINGERS 1,000 ML 30 ML IV CONT ×2 (07:00→08:29)
--- NOTE | 2023-10-09 07:03 | WPDANESEPPF ---
Anes - Initial Pre Proc Eval Procedure: Operation Date: 10/09/23 07:30 Proposed Procedures p Urethral Sling - Juan Dawson MD Date/Time: 10/09/23 07:03 Surgeon: Juan Dawson MD Pre Op Diagnosis: stress incontinence Patient Data Age: 53 Gender: F Height: 1.68 m Weight: 102.2 kg Allergies Allergy/AdvReac Type Severity Reaction Status Date / Time hydrocodone Allergy Unknown Hypertensio Verified 10/07/23 11:10 n Penicillins Allergy Unknown Rash Verified 10/07/23 11:10 hydrochlorothiazide AdvReac Severe leg Verified 10/07/23 11:10 [From Maxzide] cramps, nausea triamterene [From Maxzide] AdvReac Severe leg Verified 10/07/23 11:10 cramps, nausea Home Medications Medication Instructions Recorded Confirmed Type estradiol 1 mg tablet 1 mg PO HS 05/19/23 10/07/23 History olmesartan 5 mg tablet See Rx Instructions .Route 08/19/23 10/07/23 Rx .COMPLEX #90 tabs Patient hx anesthesia problems: none Family hx anesthesia problems: none Results Review: All pre-operative results and documents have been reviewed as part of the pre-operative evaluation. [facility] Past Medical History Medical History CVA (cerebral vascular accident) Degeneration of cervical intervertebral disc Hematuria resolved Hypertension Menorrhagia, premenopausal Microcytic anemia resolved Other intervertebral disc displacement, lumbar region Pre-syncope Scoliosis (and kyphoscoliosis), idiopathic Surgical History Surgical History S/P laparoscopic hysterectomy 8.3.23 includes cervix, ovaries, tubes Family History Family History Mother Family history of thyroid disease Hypertension Family history of malignant neoplasm of breast in first degree relative, Onset Age: 40 Father Hypertension Family history of cardiovascular disease, Onset Age: 60 Acute myocardial infarction, Onset Age: 64 Family history of malignant neoplasm Grandparent Family history of cardiovascular disease, Onset Age: 60 Malignant neoplasm of prostate Other Family history of malignant neoplasm of breast No family history of cardiovascular disease Social History Social History Smoking status: Never smoker Alcohol intake: never Substance use: never Substance use type: does not use Living arrangements: alone Spiritual care concerns: No Anes - Eval Final PreProcedure Day of Procedure 10/09/23 07:03 Patient weight: obese Heart: regular rate and rhythm Lungs: clear to auscultation Airway: Mallampati scale class II Neurological: alert and oriented Last oral intake: >/= 8 hours ASA classification: III Emergent: no Anesthetic plan: proceed Anesthesia type and monitoring: general LMA and standard monitoring Results Review: All pre-operative results and documents have been reviewed as part of the pre-operative evaluation. Informed Consent: The patient's anesthetic plan and its attendant risks and benefits were discussed with the patient/family/POA. Questions were solicited and answers provided to the satisfaction of the patient/family/POA.
--- NOTE | 2023-10-09 07:16 | WPDHPUPDATE1 ---
History and Physical Update Update Date/Time: 10/09/23 07:16 History and Physical has been reviewed, including an updated exam of the patient. There are NO changes in the patient's condition. Risks, benefits, and alternatives have been discussed and questions answered. Patient agrees to proceed with procedure.
[2023-10-09] MEDS: ceFAZolin 2 GM/D5W 50 ML 2 GM/50 ML BAG IVPB (07:27)
[2023-10-09] MEDS: BUPIVACAINE/EPINEPHRINE 0.5% 10 ML VIAL INFILTRATE (07:46)
--- NOTE | 2023-10-09 07:59 | W.PM.PROC2 ---
Procedure Note - Detailed Date of Procedure 10/09/23 Pre-op Diagnosis stress incontinence Post-op Diagnosis Same Procedure Performed mid urethral sling cystoscopy Surgeon Juan Dawson MD Anesthesia General Indications This is a female with confirm stress urinary incontinence. She desires surgical correction. She understands the risks of bleeding, infection, injury to the urinary tract, vaginal mesh extrusion, urinary tract mesh erosion, obstructive voiding requiring a secondary procedure, hip and leg pain, dyspareunia, inability to improve overactive bladder symptoms. She agrees to proceed. Description of Procedure She was correctly identified. Informed consent obtained. She was brought the operating room. She was given appropriate anesthesia. She was given appropriate perioperative antibiotics. A time-out performed. I marked out the site of the inner thigh incisions. I anesthetized the skin and made those incisions. I anesthetized the anterior vaginal wall over the mid urethra. I made a 1 cm incision. I dissected out laterally taking great care not to injure the refilled vaginal wall. I passed the helical trocars. First on the left. Then on the right. I did this from the thigh incision towards the vaginal incision. The sling was connected to the trocars and brought out through the thigh incision. I tensioned the sling appropriately. I cut and the plastic sheaths. I then closed the incision with 2 0 Vicryl. On cystoscopy there is no tumors or surgical artifact. There was no surgical artifact in the urethra. I cut the excess sling material. Close incisions with glue. She was awakened and transferred to the PACU in stable condition. Implants Urethral sling Drains No Packing No Pathology None sent Complications No immediate complications Condition Stable Disposition PACU
[2023-10-09] MEDS: oxyCODONE HCL (*CRX) 5 MG TAB IR PO (08:42)
== END 2023-10-09 09:40 | disposition home or self-care (01) ==
PROVIDERS: PCP Family Medicine; Visit Provider Urology
PROC: (CPT 57288; principal; 2023-10-09 07:30)
DX: N39.3 Stress incontinence (female) (male) (principal); I10 Essential (primary) hypertension; Z86.73 Personal history of transient ischemic attack (TIA), and cerebral infarction without residual deficits; E66.9 Obesity, unspecified; Z68.35 Body mass index [BMI] 35.0-35.9, adult
CPT/HCPCS: 57288; A9270; C1771; J0690; J1100; J2250; J2405; J2704; J3010; J7030; J7120

== ENCOUNTER 2024-07-13 15:52 | Outpatient (CLI) | payer OTHER, SELFPAY ==
--- NOTE | ~2024-07-13 | MM_ITS ---
EXAMINATION: MM screening jesús BI w hany HISTORY: Screening mammogram, family history of breast cancer in her mother. TECHNIQUE: Craniocaudal and mediolateral oblique 3-D tomosynthesis images were obtained and synthetic 2-D images were generated. CAD analysis was submitted and interpreted. COMPARISON: 06/05/2023, 02/26/2022, 01/03/2021 BREAST PARENCHYMAL COMPOSITION:Not Dense. There are scattered areas of fibroglandular density. FINDINGS: Stable bilateral breast masses are present. Bilateral benign calcifications are again prese nt. No suspicious mass, calcification, or architectural distortion are identified in either breast to suggest malignancy. There has been no suspicious interval change. IMPRESSION: No mammographic evidence of malignancy. Recommend routine screening mammography in one year. BI-RADS Category 2: Benign finding(s). Reviewed, dictated and finalized at [facility].
== END 2024-07-13 15:53 | disposition home or self-care (01) ==
LOC: MICIMG 15:53
PROVIDERS: PCP Family Medicine; Visit Provider Obstetrics & Gynecology
DX: Z12.31 Encounter for screening mammogram for malignant neoplasm of breast (principal)
CPT/HCPCS: 77063; 77067

== ENCOUNTER 2024-09-28 07:05 | Emergency (ER) | payer OTHER, SELFPAY ==
--- NOTE | ~2024-09-28 | CT_ITS ---
Clinical Indication: Chest pain radiating to back CT Scan of the Chest, Abdomen, and Pelvis with Contrast: Technique: Contiguous sections were acquired throughout the chest, abdomen, and pelvis after intraven ous administration of 100 cc of Omnipaque 350. Dose reduction technique was used on this scan by gomez riveraing automated exposure control and iterative reconstruction technique. The dose-length product (DL P) was 1317.66 mGy-cm. Findings: There is no evidence of any significant mediastinal, hilar or axillary lymphadenopathy. The mediastin al soft tissues appear normal. No aortic aneurysm or dissection. No pulmonary embolus seen. There is no evidence of pleural or pericardial effusion. The lungs are clear. No pulmonary nodules or infiltrates are noted. The liver, spleen, pancreas, gallbladder, adrenals and kidneys are within normal limits. No evidence of aortic aneurysm or dissection. No lymphadenopathy. No bowel obstruction or bowel wall thickening. There is no evidence to suggest acute appendicitis. Urinary bladder is unremarkable. No pelvic mass seen. No ascites. Impression: No significant abnormalities seen. Reviewed, dictated and finalized at [facility]. TH AND BURR WORKER COMPOSITES Impression: No significant abnormalities seen.
--- NOTE | ~2024-09-28 | US_ITS ---
EXAMINATION: US venous doppler [facility] DATE: 09/28/2024 08:23 INDICATION: Lower limb pain and swelling TECHNIQUE: Grayscale ultrasound images without and with compression and Doppler ultrasound images of the left lower extremity veins were obtained. COMPARISON: None. FINDINGS: The visualized portions of left common femoral vein, profunda (deep) femoral vein, femoral vein, popl iteal vein, peroneal veins, posterior tibial veins, gastrocnemius vein and greater saphenous vein out flow are patent. IMPRESSION: 1. No deep venous thrombosis in the left lower limb. Reviewed, dictated and finalized at location A. DUMPER OPERATOR
--- NOTE | ~2024-09-28 | XR_ITS ---
Clinical Indication: Chest pain AP and lateral views of the chest: Comparison: 12/27/2021 Findings: The lungs are clear, without evidence of focal consolidation or pleural effusion. Cardiome diastinal silhouette is within normal limits. Bones and soft tissues are unremarkable. Impression: Normal chest. Reviewed, dictated and finalized at [facility]. RMATION SYSTEMS AUDIT MANAGER Impression: Normal chest.
--- NOTE | 2024-09-28 07:06 | ECG_ITS ---
Test Date: 2024-09-28 07:13:42 Measurements Intervals Angie Rate: 83 P: 35 ME: 167 QRS: 4 QRSD: 78 T: 10 QT: 365 QTc: 431 Interpretive Statements SINUS RHYTHM CANNOT RULE OUT INFERIOR MYOCARDIAL INFARCTION ABNORMAL ECG No previous ECG available for comparison Electronically Signed On 09-28-2024 10:59:15 ELECTRIC WIRER by Rito Hugo M.D.
[2024-09-28 07:12] VITALS: BP 153/98; PULSE 79; RESP 18; O2SAT 100
[2024-09-28 07:19] VITALS: PULSE 87
--- NOTE | 2024-09-28 07:22 | ED_ITS ---
HPI - General Adult General Chief complaint: Chest Pain Stated complaint: chest pain, multiple complaints Time Seen by Provider: 09/28/24 07:07 History of Present Illness HPI narrative: 54-year-old female presenting to the emergency department for evaluation after an episode of chest pain that started approximately 545 this morning. Patient states chest pain did radiated to her back. Patient reports she did have some tingling of her hands as well. Patient does have a prior history of anxiety. Patient reports she does have a prior history of CVA. Patient denies any prior cardiac history. Patient states during this episode this morning she was not feeling particularly anxious. Patient also states that she did have some left calf pain over the last 2 days. Related Data Home Medications Medication Instructions Recorded Confirmed estradiol 1 mg tablet 1 mg PO HS 05/19/23 10/09/23 Allergies Allergy/AdvReac Type Severity Reaction Status Date / Time hydrocodone Allergy Unknown Hypertensio Verified 09/28/24 07:17 n Penicillins Allergy Unknown Rash Verified 09/28/24 07:17 hydrochlorothiazide AdvReac Severe leg Verified 09/28/24 07:17 [From Maxzide] cramps, nausea triamterene [From Maxzide] AdvReac Severe leg Verified 09/28/24 07:17 cramps, nausea Review of Systems Review of Systems: All systems reviewed & are unremarkable except as noted in HPI and below PMFSH Past Medical History Medical History Abnormal Pap smear of cervix .2020 colpo: inflamed, no dysplasia .2020 pap: LGSIL CVA (cerebral vascular accident) Degeneration of cervical intervertebral disc Hematuria resolved Hypertension Menorrhagia, premenopausal Microcytic anemia resolved Other intervertebral disc displacement, lumbar region Pre-syncope Scoliosis (and kyphoscoliosis), idiopathic Surgical History Surgical History S/P laparoscopic hysterectomy 8 includes cervix, ovaries, tubes Family History Family History Mother Family history of thyroid disease Hypertension Family history of malignant neoplasm of breast in first degree relative, Onset Age: 40 Father Hypertension Family history of cardiovascular disease, Onset Age: 60 Acute myocardial infarction, Onset Age: 64 Family history of malignant neoplasm Grandparent Family history of cardiovascular disease, Onset Age: 60 Malignant neoplasm of prostate Other Family history of malignant neoplasm of breast No family history of cardiovascular disease Social History Social History Smoking status: Never smoker Alcohol intake: never Substance use: never Substance use type: does not use Living arrangements: alone Spiritual care concerns: No Exam Narrative: APPEARANCE: Well appearing, no pain, no distress, well-nourished. HEAD: normocephalic, atraumatic. EYES: PERRLA/EOMI, conjunctivae clear. NOSE: Normal no drainage EARS:TMS clear with good light reflex. THROAT: Pharynx clear, no exudate. NECK: Supple. No adenopathy, no masses. RESPIRATORY: Airway patent, respirations nonlabored. Clear to auscultation bilaterally, no rales, rhonchi, wheezing. CARDIOVASCULAR: Regular rate and rhythm without murmurs rubs or gallops. ABDOMINAL: Soft, nontender, nondistended, normal bowel sounds MUSCULOSKELETAL: Moves all extremities. Strength/ROM intact, No edema, No calf tenderness. NEURO: Alert. Cranial nerves II through XII intact. Grossly intact SKIN: Warm, dry. Normal Color Course Vital Signs Vital signs: Vital Signs Pulse Rate 79 09/28/24 07:12 Respiratory Rate 18 09/28/24 07:12 Blood Pressure 153/98 H 09/28/24 07:12 Pulse Oximetry 100 09/28/24 07:12 Oxygen Delivery Room Air 09/28/24 07:12 Pulse Rate 74 09/28/24 11:44 Respiratory Rate 20 09/28/24 11:44 Blood Pressure 130/84 09/28/24 11:44 Pulse Oximetry 99 09/28/24 11:44 Oxygen Delivery Room Air 09/28/24 08:07 Medical Decision Making [facility] Narrative Medical decision making narrative: 54-year-old female present to the emergency department for evaluation for episode of chest and back pain. Patient is afebrile with no leukocytosis and hemoglobin of 13.8. INR 0.9, no acute abnormalities on the CMP and patient had negative serial troponins, lipase not elevated. CTA of chest abdomen pelvis was ordered and showed no evidence of dissection, ultrasound was ordered of her left lower extremity and was negative for DVT. Differential Diagnosis Differential Diagnosis: [place], pulmonary embolism, pneumonia a DVT Vital Signs Vital Signs: Vital Signs Pulse Rate 79 09/28/24 07:12 Respiratory Rate 18 09/28/24 07:12 Blood Pressure 153/98 H 09/28/24 07:12 Pulse Oximetry 100 09/28/24 07:12 Oxygen Delivery Room Air 09/28/24 07:12 Pulse Rate 74 09/28/24 11:44 Respiratory Rate 20 09/28/24 11:44 Blood Pressure 130/84 09/28/24 11:44 Pulse Oximetry 99 09/28/24 11:44 Oxygen Delivery Room Air 09/28/24 08:07 Lab Data 09/28/24 07:21 09/28/24 07:21 Labs: Lab Results 09/28/24 09/28/24 Range/Units 07:21 10:19 WBC 4.7 (4.5-10.0) K/mm3 RBC 4.89 (4.2-5.4) M/mm3 Hgb 13.8 (12.0-15.0) g/dL Hct 43.2 (37.0-47.0) % MCV 88.3 (80-100) fl MCH 28.2 (26-34) pg MCHC 31.9 L (32-36) g/dl RDW 12.3 (11.5-14.5) % Plt Count 255 (150-375) k/mm3 MPV 10.4 (7.4-10.4) fl Immature Gran % (Auto) 0.4 (0-0.5) % Neut % (Auto) 64.1 (45.5-73.1) % Lymph % (Auto) 24.7 (18.3-44.2) % [place] % (Auto) 8.5 (2.6-8.5) % Eos % (Auto) 1.9 (0-4.4) % Baso % (Auto) 0.4 (0.2-1.2) % Lymph # (Auto) 1.17 (0.9-3.2) K/mm3 [place] # (Auto) 0.4 (0.1-0.6) K/mm3 Eos # (Auto) 0.1 (0-0.3) K/mm3 Baso # (Auto) 0.0 (0.0-0.1) K/mm3 Abs Immat Gran (auto) 0.02 (0.00-0.031) K/mm3 Absolute Neuts (auto) 3.0 (1.3-6.7) K/mm3 Absolute Nucleated RBC 0.000 (0.0-0.012) K/mm3 Nucleated RBC % 0.0 (0.0-0.2) % PT 12.8 (11.1-14.7) Seconds INR 0.9 APTT 23.5 (22.3-36.8) Seconds Sodium 138 (137-145) mmol/L Potassium 4.2 (3.4-5.0) mmol/L Chloride 108 H (98-107) mmol/L Carbon Dioxide 24 (22-30) mmol/L Anion Gap 6 (4-12) mmol/L BUN 16 (7-17) mg/dL Creatinine 0.80 (0.7-1.0) mg/dL Estim Creat Clear Calc 85 ml/min Estimated GFR > 60 (59 - ) Glucose 96 (65-110) mg/dL Calcium 8.9 (8.4-10.2) mg/dL Total Bilirubin 0.7 (0.2-1.3) mg/dL AST 23 (14-36) U/L ALT 18 (6-35) U/L Alkaline Phosphatase 90 (38-126) U/L Troponin I < 0.012 < 0.012 (0.000-0.034) ng/mL Total Protein 8.0 (6.3-8.2) g/dL Albumin 4.3 (3.5-5.1) g/dL Lipase 62 (23-300) U/L Imaging Data Radiologist's impression: Impressions Chest X-Ray 09/28/24 07:46 Impression: Normal chest. Chest/Abdomen/Pelvis CTA 09/28/24 08:06 Impression: No significant abnormalities seen. Venous Doppler Study 09/28/24 08:32 IMPRESSION: 1. No deep venous thrombosis in the left lower limb. Discharge Plan Discharge Clinical Impression: Chest pain, Acute leg pain Patient Disposition: Home, Self-Care Condition: Stable Instructions: Antibiotic Form, Chest Pain (ED) Additional Instructions: Have close follow-up with your primary care physician for additional outpatient cardiac testing. If you have any worsening symptoms then please call or return to the emergency department. Prescriptions: No Action estradiol 1 mg tablet 1 mg PO HS olmesartan 5 mg tablet See Rx Instructions .ROUTE .COMPLEX Qty: 90 3RF Dose Instruction: TAKE 1 TABLET DAILY Rx Instructions: TAKE 1 TABLET DAILY Follow-up/Referrals: Hanna Mckeon MD [Primary Care Provider] - Quality HEART score for chest pain patients History: slightly suspicious ECG: normal Age: > 45 and < 65 years Risk factors: 1 or 2 risk factors Troponin: < or = to 1x normal limit Heart score: 2
[2024-09-28 07:26] LABS: Basophils Percent Auto 0.4 % (0.2-1.2); Eosinophils Absolute Auto 0.1 K/mm3 (0-0.3); Eosinophils Percent Auto 1.9 % (0-4.4); Hematocrit 43.2 % (37.0-47.0); Hemoglobin 13.8 g/dL (12.0-15.0); Immature Granulocyte Absolute 0.02 K/mm3 (0.00-0.031); Immature Granulocyte Percent A 0.4 % (0-0.5); Lymphocytes Absolute Auto 1.17 K/mm3 (0.9-3.2); Lymphocytes Percent Auto 24.7 % (18.3-44.2); Mean Corpuscular HGB Conc 31.9 g/dl (32-36); Mean Corpuscular Hemoglobin 28.2 pg (26-34); Mean Corpuscular Volume 88.3 fl (80-100); Mean Platelet Volume 10.4 fl (7.4-10.4); Monocytes Absolute Auto 0.4 K/mm3 (0.1-0.6); Monocytes Percent Auto 8.5 % (2.6-8.5); Neutrophils Percent Auto 64.1 % (45.5-73.1); Platelet Count Result 255 k/mm3 (150-375); Red Blood Count 4.89 M/mm3 (4.2-5.4); Red Cell Distribution Width 12.3 % (11.5-14.5); White Blood Count 4.7 K/mm3 (4.5-10.0)
--- NOTE | 2024-09-28 07:35 | PC.NURSE ---
Pt in CT, XR and US at this time
[2024-09-28 07:38] LABS: INR 0.9; Partial Thromboplastin Time 23.5 Seconds (22.3-36.8); Prothrombin Time 12.8 Seconds (11.1-14.7)
[2024-09-28 07:39] LABS: Alanine Aminotransferase 18 U/L (6-35); Albumin Level 4.3 g/dL (3.5-5.1); Alkaline Phosphatase 90 U/L (38-126); Anion Gap 6 mmol/L (4-12); Aspartate Amino Transferase 23 U/L (14-36); Bilirubin,Total 0.7 mg/dL (0.2-1.3); Blood Urea Nitrogen 16 mg/dL (7-17); Calcium 8.9 mg/dL (8.4-10.2); Carbon Dioxide 24 mmol/L (22-30); Chloride 108 mmol/L (98-107); Estimated CRCL calculation 85 ml/min; Estimated Glomerular Filt Rate > 60; Glucose 96 mg/dL (65-110); Lipase 62 U/L (23-300); Potassium 4.2 mmol/L (3.4-5.0); Sodium 138 mmol/L (137-145)
[2024-09-28 07:50] LABS: Troponin I < 0.012 ng/mL (0.000-0.034)
[2024-09-28 08:07] VITALS: O2SAT 100
[2024-09-28] MEDS: ASPIRIN 81 MG CHEWABLE TABLET 324 MG PO (08:19)
[2024-09-28 09:01] VITALS: BP 136/97; PULSE 70; RESP 18; O2SAT 99
[2024-09-28 09:31] VITALS: BP 142/96; PULSE 73; RESP 22; O2SAT 100
--- NOTE | 2024-09-28 10:16 | ECG_ITS ---
Test Date: 2024-09-28 10:21:41 Measurements Intervals [place] Rate: 71 P: 18 WV: 173 QRS: 48 QRSD: 84 T: 48 QT: 393 QTc: 428 Interpretive Statements SINUS RHYTHM NORMAL ECG Compared to ECG 09/28/2024 07:13:42 Myocardial infarct finding no longer present Electronically Signed On 09-28-2024 11:02:51 OUTSOLE COMPRESSOR by Rito Hugo M.D.
[2024-09-28 10:56] LABS: Troponin I < 0.012 ng/mL (0.000-0.034)
[2024-09-28 11:44] VITALS: BP 130/84; PULSE 74; RESP 20; O2SAT 99
== END 2024-09-28 11:48 | disposition home or self-care (01) ==
PROVIDERS: Emergency Provider Emergency Medicine; PCP Family Medicine
DX: R07.9 Chest pain, unspecified (principal); M79.662 Pain in left lower leg; I10 Essential (primary) hypertension; M41.20 Other idiopathic scoliosis, site unspecified; Z86.73 Personal history of transient ischemic attack (TIA), and cerebral infarction without residual deficits; Z86.2 Personal history of diseases of the blood and blood-forming organs and certain disorders involving the immune mechanism; Z90.710 Acquired absence of both cervix and uterus; R94.31 Abnormal electrocardiogram [ECG] [EKG]
CPT/HCPCS: 36415; 71046; 71275; 74174; 80053; 83690; 84484; 85025; 85610; 85730; 93005; 93971; 99284; A9270; Q9967

== ENCOUNTER 2024-12-15 08:45 | Outpatient (CLI) | payer OTHER, SELFPAY ==
--- NOTE | 2024-12-15 08:52 | EST_ITS ---
Patient Info Name: Melania Boykin Age: 54 years : 1970 Gender: Female Ht: 67 in Wt: 225 lbs BSA: 2.24 m2 Exam Date: 12/15/2024 10:05 AM Exam Location: [facility] Patient Status: Outpatient Admit Date: 12/15/2024 Staff Ordering Physician: Uche Steele APRN Attending Provider: Uche Steele APRN Exercise Technologist: Gloria Pereira RDCS Exercise Physician: Kash Cheung DO Exam Type: CA stress test treadmill Study Info Indications R07.89 - Other chest pain A treadmill exercise stress test was performed. Summary 1. 1. Negative Home exercise stress test for ischemic ST changes by ECG criteria. 2. 2. Reduced functional capacity, achieving 7 METs of workload. 3. 3. Baseline hypertension. 4. 4. Appropriate HR response to exercise. 5. 5. Appropriate HR recovery at 1 minute post exercise. 6. 6. No imaging with stress testing. 7. 7. Patient informed of the above results. Protocol: Home Stress ECG Details Stage: REST Duration (min): 0 min : 42 sec Speed (mph): 0.0 Grade (%): 0 HR (bpm): 86 SBP (mmHg): 145 DBP (mmHg): 91 METS: --- Stage: REST Duration (min): 5 min : 33 sec Speed (mph): 0.0 Grade (%): 0 HR (bpm): 95 SBP (mmHg): 145 DBP (mmHg): 91 METS: --- Stage: STAGE 1 Duration (min): 1 min : 0 sec Speed (mph): 1.7 Grade (%): 10 HR (bpm): 121 SBP (mmHg): 145 DBP (mmHg): 91 METS: --- Stage: STAGE 1 Duration (min): 2 min : 0 sec Speed (mph): 1.7 Grade (%): 10 HR (bpm): 133 SBP (mmHg): 145 DBP (mmHg): 91 METS: --- Stage: STAGE 1 Duration (min): 3 min : 0 sec Speed (mph): 1.7 Grade (%): 10 HR (bpm): 145 SBP (mmHg): 192 DBP (mmHg): 93 METS: --- Stage: STAGE 2 Duration (min): 1 min : 0 sec Speed (mph): 2.5 Grade (%): 12 HR (bpm): 146 SBP (mmHg): 192 DBP (mmHg): 93 METS: --- Stage: STAGE 2 Duration (min): 2 min : 0 sec Speed (mph): 2.5 Grade (%): 12 HR (bpm): 151 SBP (mmHg): 208 DBP (mmHg): 95 METS: --- Stage: STAGE 2 Duration (min): 2 min : 0 sec Speed (mph): 2.5 Grade (%): 12 HR (bpm): 151 SBP (mmHg): 208 DBP (mmHg): 95 METS: --- Stage: RECOVERY Duration (min): 0 min : 59 sec Speed (mph): 0.0 Grade (%): 0 HR (bpm): 129 SBP (mmHg): 208 DBP (mmHg): 95 METS: --- Stage: RECOVERY Duration (min): 1 min : 59 sec Speed (mph): 0.0 Grade (%): 0 HR (bpm): 104 SBP (mmHg): 188 DBP (mmHg): 69 METS: --- Stage: RECOVERY Duration (min): 2 min : 59 sec Speed (mph): 0.0 Grade (%): 0 HR (bpm): 100 SBP (mmHg): 170 DBP (mmHg): 71 METS: --- Stage: RECOVERY Duration (min): 3 min : 59 sec Speed (mph): 0.0 Grade (%): 0 HR (bpm): 96 SBP (mmHg): 170 DBP (mmHg): 71 METS: --- Stage: RECOVERY Duration (min): 4 min : 49 sec Speed (mph): 0.0 Grade (%): 0 HR (bpm): 96 SBP (mmHg): 148 DBP (mmHg): 74 METS: --- Rest HR: 95 bpm Peak HR: 151 bpm Rest Sys BP: 145 mmHg Peak Sys BP: 208 mmHg Max Pred HR: 166 bpm % Max Pred HR: 91 % Target HR: 141 bpm Max RPP: 31,408 bpm*mmHg Wills Score: -1 Termination Reason: Reached target heart rate or workload Cardiac Symptoms: Shortness of breath Max ST Seg Deviation: -1.20 mm Total Time: 5 min : 0 sec Rest Pyle BP: 91 mmHg Peak Pyle BP: 95 mmHg Angina Score: None Total METS: 7.1 Resting ECG Sinus rhythm. Stress ECG No ST changes. Arrhythmias None. Report Signatures
--- OUTSIDE RECORDS SUMMARY | 2024-12-15 08:52 | XMS_ITS | Referral Summary ---
Author Organization [facility] Address [facility]ly [facility] [place] [address] Care Team Providers Care Inspector Balance Wheel Motion Name Role Phone Irena Stern MD Unavailable [phone] Hanna Mckeon MD Primary Care Provider + Allergies Active Allergy Reactions Criticality Noted Date Comments Amoxicillin Rash Medium 03/12/2021 Penicillins Rash Medium 03/12/2021 Hydrocodone-Acetaminophen Rash Medium 03/12/2021 Rash, headache, HTN Medications cholecalciferol (VITAMIN D-3) 24852 unit tablet Take 50,000 Units by mouth once a week Active ibuprofen (ADVIL,MOTRIN) 200 mg tab/cap Take by mouth every 6 (six) hours as needed for pain Active ergocalciferol (VITAMIN D) 50,000 unit capsule Take 50,000 Units by mouth 03/01/2021 Active Active Problems Problem Noted Date Diagnosed Date Abnormal mammogram 10/16/2015 Social History Tobacco Use Types Packs/Day Years Used Date Smoking Tobacco: Never AUDIT-C Answer Date Recorded Q1: How often do you have a drink containing alc ohol? 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 PL[facility] Care Teams Inspector Balance Wheel Motion Relationship Specialty Start Date End Date Hanna Mckeon MD PCP - General Family Medicine 02/22/21 Irena Stern MD Referring Physician Obstetrics and Gynecology 02/12/21
--- OUTSIDE RECORDS SUMMARY | 2024-12-15 08:52 | XMS_ITS | Clinical Summary ---
Author Organization [facility] Address [facility] [place] [address] Care Team Providers Care Manager Manufacturing Name Role Phone Irena Stern MD Unavailable [phone] Hanna Mckeon MD Primary Care Provider + Allergies Active Allergy Reactions Criticality Noted Date Comments Amoxicillin Rash Medium 03/12/2021 Penicillins Rash Medium 03/12/2021 Hydrocodone-Acetaminophen Rash Medium 03/12/2021 Rash, headache, HTN Medications cholecalciferol (VITAMIN D-3) 96172 unit tablet Take 50,000 Units by mouth once a week Active ibuprofen (ADVIL,MOTRIN) 200 mg tab/cap Take by mouth every 6 (six) hours as needed for pain Active ergocalciferol (VITAMIN D) 50,000 unit capsule Take 50,000 Units by mouth 03/01/2021 Active Active Problems Problem Noted Date Diagnosed Date Abnormal mammogram 10/16/2015 Surgical History Surgery Date Site/Laterality Comments WRIST SURGERY 10/26/1985 - 10/25/1986 mass excision ABLATION 10/26/2018 - 10/25/2019 CERVICAL BIOPSY 10/26/2020 - 10/25/2021 WISDOM TOOTH EXTRACTION 10/26/1987 - 10/25/1988 Medical History Medical History Date Comments Hypertension Generalized headaches Family History Medical History Relation Name Comments BRCA 2 Cousin maternal cousin Leukemia Father Non-Hodgkin's Lymphoma Father Breast cancer Father's Brother Prostate cancer Maternal Grandfather Skin cancer Maternal Grandfather BRCA 2 Mother Irma Breast cancer Mother Irma BRCA 2 Mother's Brother Breast cancer Mother's Brother Breast cancer Mother's Sister spinal cancer Paternal Grandmother Relation Name Status Comments Cousin maternal cousin Alive Father Father's Brother Maternal Grandfather Mother Irma Alive Mother's Brother Mother's Sister Paternal Grandmother Social History Tobacco Use Types Packs/Day Years [...] on file 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
--- OUTSIDE RECORDS SUMMARY | 2024-12-15 08:52 | XMS_ITS | Clinical Summary ---
Author Organization [facility] Address [address] [place] [id number] Care Team Providers Care Senior Developer Name Role Phone Unavailable Primary Care Provider Unavailabl e Social History Tobacco Use Types Packs/Day Years Used Date Smoking Tobacco: Never Assessed Comments Unknown Sex and Gender Information Value Date Recorded Sex Assigned at Not on file Legal Sex Female 8:09 PM CDT Gender Identity Not on file Sexual Orientation Not on file Plan of Treatment Health Maintenance Due Date Last Done Comments Cervical Cancer Screening Pa p Smear (Age 30 to 64) Every 3 Years 1970 Colorectal Cancer Screening Colonoscopy (10 Years) 1970 Annual Physical 1973 Hepatitis C 02/17/1988 DTaP, Tdap and Td Vaccines ( 1 - Tdap) 1989 Hepatitis B Vaccines (1 of 3 - 19+ 3-dose series) 1989 Cervical Cancer Screening Pa p with HPV Testing (Age 30 to 64) Every 5 Years 02/17/2000 Cervical Cancer Screening with HPV 02/17/2000 Mammogram Screening 2010 Zoster Vaccines (1 of 2) 02/17/2020 COVID-19 Vaccine (2023-2 5 season) 2024 Influenza Adult (#1) 2024 Meningococcal B Vaccine Aged Out No l onger eligible based on patient's age to complete this topic Meningococcal Vaccine Aged Out No anila adarsh eligible based on patient's age to complete this topic Pneumococcal Vaccine: Pediat rics (0 to 5 Years) and At-Risk Patients (6 to 64 Years) Aged Out No longer eligible b ased on patient's age to complete this topic RSV Immunizations Under 20 Months Aged Out No longer eligible based on patient's age to complete this topic
== END 2024-12-15 08:46 | disposition home or self-care (01) ==
LOC: ANHCARD 08:46
PROVIDERS: PCP Family Medicine; Visit Provider Student in an Organized Health Care Education/Training Program
DX: R07.89 Other chest pain (principal); R07.9 Chest pain, unspecified
CPT/HCPCS: 93017

== ENCOUNTER 2025-04-04 09:55 | Outpatient (CLI) | payer OTHER, SELFPAY ==
--- NOTE | ~2025-04-04 | CT_ITS ---
Procedure: CT ankle LT wo con Ordering provider: Hanna Mckeon MD History: . M76.60 - Achilles tendinitis, unspecified leg . Comparison: None. Technique: Thin slice axial CT of the No IV contrast was given. Sagittal and coronal reformatted imag es were also obtained and reviewed. Radiation reduction technique utilized. The dose-length product w as 202.02 mGy-cm. Findings: BONES: No evidence of fractures seen. JOINT SPACES: Normal. SOFT TISSUES: Thickening in the mid portion of the tendo Achilles is noted which may indicate tendini tis. Stranding is seen in the area between the tendo Achilles and the talus bone which may be inflammatory or posttraumatic traumatic. Ossification of the insertion of the tendo Achilles is seen. IMPRESSION: Thickening of the tendo Achilles which may indicate tendinitis. Minimal fat stranding seen anterior to the tendo Achilles which may be posttraumatic. Reviewed, dictated and finalized at location A. IMPRESSION: Thickening of the tendo Achilles which may indicate tendinitis. Minimal fat stranding seen anterior to the tendo Achilles which may be posttrau matic.
== END 2025-04-04 09:56 | disposition home or self-care (01) ==
PROVIDERS: PCP Family Medicine; Visit Provider Family Medicine
DX: M76.62 Achilles tendinitis, left leg (principal)
CPT/HCPCS: 73700

== ENCOUNTER 2025-04-27 10:17 | Outpatient (CLI) | payer OTHER, SELFPAY ==
--- NOTE | ~2025-04-27 | MR_ITS ---
EXAMINATION: MR wrist LT wo/w con DATE: 04/27/2025 11:14 INDICATION: Left wrist/forearm mass TECHNIQUE: Magnetic resonance imaging (MRI) of the affected wrist was performed without intravenous c ontrast. Sequences performed include axial PD-weighted FSE and PD-weighted FS FSE, coronal PD-weighte d FS FSE and T1-weighted SE, and sagittal PD-weighted FS FSE and PD-weighted FSE. COMPARISON: None FINDINGS: Intrinsic ligaments: The scapholunate and lunotriquetral ligaments are normal. Triangular fibrocartilage complex (TFCC): There is a partial tear of the central fibrocartilaginous disc of the triangular fibrocartilage compl ex. The radial, foveal and styloid attachments as well as the dorsal and volar radioulnar ligaments a re normal. The ulnar collateral ligament, ulnotriquetral ligament and meniscal homologue are normal. The extensor carpi ulnaris tendon sheath is normal. Extensor wrist: Extensor tendons of the wrist are normal. No tenosynovitis. Flexor wrist: The flexor tendons of the wrist are normal. No abnormality in the carpal tunnel with normal median n erve. Guyon's canal: Guyon's canal including the ulnar nerve and artery are normal. Bones/other: Normal marrow signal. No fracture, erosions, avascular necrosis or pathologic marrow replacing proces s. 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 At the volar aspect of the distal forearm is a serpiginous collectio n of T2 hyperintense likely vessels with contrast enhancement surrounded by fat and located along the ulnar artery and nerve. It is unclear whether these surround or within and expand the ulnar nerve. T his extends for 3.3 cm proximal to distal and measures up to 8 x 7 mm in transaxial dimensions sugges ting a vascular malformation. No evident flow voids on the T2-weighted imaging to suggest high flow. There is located in relatively close proximity to the marker indicating the lesion of concern. No oth er abnormal masses or fluid collections identified. IMPRESSION: 1. 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 No other abnormal masses or fluid collections identified. 2. Partial tear of the central fibrocartilaginous disc of the triangular fibrocartilage complex. Reviewed, dictated and finalized at location A. IMPRESSION: 1. 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 No other abnormal masses or fluid collections identified. 2. Partial tear of the central fibrocartilaginous disc of the triangular fibroc artilage complex.
== END 2025-04-27 10:18 | disposition home or self-care (01) ==
LOC: MICIMG 10:18
PROVIDERS: PCP Family Medicine; Visit Provider Plastic Surgery
DX: G56.22 Lesion of ulnar nerve, left upper limb (principal)
CPT/HCPCS: 73223; A9577

== ENCOUNTER 2025-05-01 09:25 | Outpatient (CLI) | payer OTHER, SELFPAY ==
--- OUTSIDE RECORDS SUMMARY | 2025-05-01 09:35 | XMS_ITS | Referral Summary ---
Author Organization [facility] Address [facility] [place] [address] Care Team Providers Care Roller Hand Name Role Phone Irena Stern MD Unavailable [phone] Hanna Mckeon MD Primary Care Provider + Allergies Active Allergy Reactions Criticality Noted Date Comments Amoxicillin Rash Medium 03/12/2021 Penicillins Rash Medium 03/12/2021 Hydrocodone-Acetaminophen Rash Medium 03/12/2021 Rash, headache, HTN Medications cholecalciferol (VITAMIN D-3) 68998 unit tablet Take 50,000 Units by mouth [...] on file Legal Sex Female 4:22 AM DRILL O[employer] Gender Identity Not on file Sexual Orientation Not on file Plan of Treatment Not on file Insurance [facility] PLUS [facility] PLUS Care Teams Roller Hand Relationship Specialty Start Date End Date Hanna Mckeon MD PCP - General Family Medicine 02/22/21 Irena Stern MD Referring Physician Obstetrics and Gynecology 02/12/21
--- OUTSIDE RECORDS SUMMARY | 2025-05-01 09:35 | XMS_ITS | Clinical Summary ---
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
--- OUTSIDE RECORDS SUMMARY | 2025-05-01 09:35 | XMS_ITS | Data Portability ---
Author Organization [facility] Address [address] [place] [address] Care Team Providers Care Jewel Diameter Gauger Name Role Phone HERMELINDO PANCHO Primary Care Provider Assessment Encounter Date Assessment Date Assessment LastModified by Organization Details LastModified Time 03/28/2024 03/28/2024 Annual gynecological exam performed. Patient will come back in a year unless there are new symptoms. Not available 03/28/2024 09:48:40 Plan of Treatment Reminders Order Date Submit Date Provider Last Modified By Organization Details Last Modified Time Details Appointments None recorded. Lab CBC w/ auto diff 2023 024 [facility] (Lab), [address] [place], [address], 4 05:47:19 CMP, serum or plasma 2023 024 [facility] (Lab), [address] [place], [address], 4 05:47:20 lipid panel, blood 2023 024 [facility] (Lab), [address] [place], [address], 4 05:47:20 TSH, serum or plasma 2023 024 [facility] (Lab), [address] [place], [address], 4 05:47:21 25-hydroxy vitamin D2 + 25-hydroxy vitamin D3, QN, serum or plasma 2023 024 [facility] (Lab), [address], [place], [address], 4 05:47:21 Referral None recorded. Procedures None recorded. Surgeries total hysterecto my, laparoscop ic, with bilateral salpingo-o ophorectom y (SURG) 2022 023 [facility], [address], [place], [address], 3 19:51:23 Imaging None recorded. Medication Orders None recorded. Patient TargetsNo targets recorded. Patient InstructionsNo instructions recorded. Reason for Referral None Reported. Results Created Date Observation Date Name Description Value Unit Range Abnormal Flag Note LastModifiedBy Organization Detail LastModifiedTime 04/13/20 23 04/13/2023 SURGI KAPIL PATHO LOGY surgical pathology SEE RESULT S BELOW CASE REPOR T: Surgi kapil Patho logy Repor t Case: [id number] Autho lian carmona Provi ramiro: Rebecca Garcia MD Colle cted: 04/13 1437 Order ing Locat ion: [place] Patho logy Recei ismael: 04/14 0313 Patho logis t: Adam Baldwin MD Speci mens: A) - Endoc ervix , ECC B) - Cervi x, Cervi kapil bx FINAL DIAGN OSIS: A. Endoc ervix , curet tage: -Campbell gn endoc ervic al gland ular mucos a with no patho logic abnor malit ies. B. Cervi x, biops y: -Campbell gn cervi kapil trans forma tion zone mucos a with acute and chron ic infla mmati on. Elect neo bhatt d by Adam Baldwin MD on 2022 at 2:29 PM ----- ----- ----- ----- ----- ----- ----- ----- ----- ----- ----- ----- ----- ----- ----- ----- ----- ---- CLINI KAPIL INFOR MATAMANDA N: n87.9 MICRO SCOPI C DESCR IPTIO N: A micro scopi c exami natio n was perfo rmed. GROSS DESCR IPTIO N: A. Endoc ervix . The speci men is label ed with the patie nt's name, demog raphi cs and ECC . Recei ismael in forma matthew is a 2.0 x 2.0 x 0.[address] of ba-b rown tissu e and blood clot. The entir e speci men is submi tted in one casse tte. Gross ed by Soni Matamoros Cervi x. The speci men is label ed with the patie nt's name, viviog raphi cs and cervi kapil biops y. Recei ismael in forma matthew is a 0.7 cm piece of white -ba tissu e. The entir e speci men is submi tted in one casse tte. Gross ed by Soni Degroot Not Available [facility] (Lab) [address], [place], [address], 04/14/2023 15:32:29 04/13/20 23 04/13/2023 DHEA SULFA TE DHEA-sulfate 59 ug/dL Femal e Range s Age(y ) Range (ug/d L) 10-15 34-28 0 15-20 65-36 8 20-25 148-4 07 25-35 99-34 0 35-45 61-33 7 45-55 35-25 6 55-65 19-20 5 65-75 9-246 > 75 12-15 4 Not Available [facility] (Lab) [address], [place], [address], 04/20/2023 21:12:22 04/13/20 23 04/13/2023 PROGE STERO NE progesterone 1.52 NG/mL This assay was perfo rmed using [employer] ratio n reage nts and test kits. Value s obtai chung with other assay metho ds or kits canno t be used inter [facility] . Femal e Proge stero ne Range s: Folli cular phase 0.06- 0.89 ng/mL Ovula tion phase 0.12- 12.00 ng/mL Lutea l phase 1.83- 23.90 ng/mL Postm enopa usal< 0.05- 0.13 ng/mL Healt hy Pregn ant Women 1st Trime ster1 1.0-4 4.30 2nd Trime ster2 5.40- 83.30 3rd Trime ster5 8.70- 214.0 0 Not Available [facility] (Lab) [address] [place], [address], 04/20/2023 21:12:23 04/13/20 23 04/13/2023 PROLA CTIN prolactin, total 12.70 NG/mL 4.79-2 3.30 This assay was perfo rmed using [employer] ratio n reage nts and test kits. Value s obtai chung with other assay metho ds or kits canno t be used inter [facility] . Not Available [facility] (Lab) [address] [place], [address], 04/20/2023 21:12:23 04/13/20 23 04/13/2023 FSH, LH, ESTRA DIOL estradiol 64.7 pg/mL This assay was perfo rmed using [employer] n reage nts and test kits. Value s obtai chung with other assay metho ds or kits canno t be used inter [facility] . Femal e Estra diol Range s: Folli cular phase 12.4- 233 pg/mL Ovula tion phase 41.0- 398 pg/mL Lutea l phase 22.3- 341 pg/mL Postm enopa usal< 5-138 pg/mL Healt hy Pregn ant Women 1st Trime ster1 54-32 43 pg/mL 2nd Trime ster1 561-2 1280 pg/mL 3rd Trime ster8 525-> 30073 pg/mL Not Available [facility] (Lab) [address], [place], [address], 04/20/2023 21:12:23 04/13/20 23 04/13/2023 FSH, LH, ESTRA DIOL FSH 7.7 mIU/m L This assay was perfo rmed using [employer] n reage nts and test kits. Value s obtai chung with other assay metho ds or kits canno t be used inter [facility] . Femal es Folli cular : 3.5-1 2.5 mIU/m L Ovula tion: 4.7-2 1.5 mIU/m L Lutea l: 1.7-7 .7 mIU/m L Postm enopa use: 25.8- 134.8 mIU/m L Not Available [facility] (Lab) [address], [place], [address], 04/20/2023 21:12:23 04/13/20 23 04/13/2023 FSH, LH, ESTRA DIOL LH 11.3 mIU/m L This assay was perfo rmed using [employer] n reage nts and test kits. Value s obtai chung with other assay metho ds or kits canno t be used inter [facility] . Femal es Mid-F ollic ular: 2.4-1 2.6 mIU/m L Mid-C ycle: 14.0- 95.6 mIU/m L Mid-L uteal : 1.0-1 1.4 mIU/m L Postm enopa use: 7.7-5 8.5 mIU/m L Not Available [facility] (Lab) [address] [place], [address], 04/20/2023 21:12:23 04/13/20 23 04/13/2023 TSH, REFLE X FREE T4 TSH 2.25 uIU/m L 0.30-5 .33 Not Available [facility] (Lab) [address] [place], [address], 04/20/2023 21:12:24 04/13/20 23 04/13/2023 HUMAN SEX HORMO NE ALBIN NG CRIS CASTILLO sex hormone binding globulin 47.2 nmole s/L 16.8-1 25.2 Not Available [facility] (Lab) [address] [place], [address], 04/20/2023 21:12:24 04/13/20 23 04/13/2023 TESTO STERO NE, FREE( DIALY SIS) AND TOTAL (LC/M S/MS) testosterone , total 17 NG/dL 2-45 For addit ional chuck choudhary e refer to http: //akhil mckeon.shaneka stdia gnost ics.c om/fa q/Tot alTjose e fueL [facility] (This link is being provi ded for mishel luciano/ educa eric l purpo ses only. ) This test was devel oped and its leonor tical perfo rmanc e alan cteri stics have been deter mined by [employer]. It has not been clear ed or appro ismael by the FDA. This assay has been valid ated pursu ant to the CLIA regul ation s and is used for clini kapil purpo ses. Not Available [facility] (Lab) [address] [place], [address], 04/20/2023 21:12:25 04/13/20 23 04/13/2023 TESTO STERO NE, FREE( DIALY SIS) AND TOTAL (LC/M S/MS) testosterone , free 2.3 pg/mL 0.1-6. 4 This test was devel oped and its leonor tical perfo rmanc e alan cteri stics have been deter mined by [employer]. It has not been clear ed or appro ismael by the FDA. This assay has been valid ated pursu ant to the CLIA regul ation s and is used for clini kapil purpo ses. Perfo rming Organ izati on Infor matio n: Site ID: [id number] Name: Sherrell sahu s-Eron volodymyr Dorys edi Addre ss: [id number] [place] [address] Direc tor: Gypsy maria M.D. Not Available [facility] (Lab) [address], [place], [address], 04/20/2023 21:12:25 04/13/20 23 04/13/2023 pregn consuelo test, urine HCG negati ve Not Available [facility] [address] [place], [address], 04/13/2023 09:58:01 03/28/2003/28/2024 CBC W/DIF F WBC 4.1 10'3/ uL 3.5-10 .5 Not Available [facility] (Lab) [address], [place], [address], 03/29/2024 05:47:19 03/28/20 24 03/28/2024 CBC W/DIF F RBC 5.12 10'6/ uL (based on docume nted legal sex) 3.80-5 .20 Not Available [facility] (Lab) [address], [place], [address], 03/29/2024 05:47:19 03/28/20 24 03/28/2024 CBC W/DIF F HGB 14.2 g/dL (based on docume nted legal sex) 11.6-1 5.4 Not Available [facility] (Lab) [address], [place], [address], 03/29/2024 05:47:19 03/28/20 24 03/28/2024 CBC W/DIF F HCT 43.7 % (based on docume nted legal sex) 34.0-4 5.0 Not Available [facility] (Lab) [address], [place], [address], 03/29/2024 05:47:19 03/28/20 24 03/28/2024 CBC W/DIF F MCV 85.4 fL 80.0-9 9.0 Not Available [facility] (Lab) [address], [place], [address], 03/29/2024 05:47:19 03/28/20 24 03/28/2024 CBC W/DIF F MCH 27.7 pg 27.0-3 4.0 Not Available [facility] (Lab) [address], [place], [address], 03/29/2024 05:47:19 03/28/20 24 03/28/2024 CBC W/DIF F MCHC 32.5 g/dL 32.0-3 5.5 Not Available [facility] (Lab) [address], [place], [address], 03/29/2024 05:47:19 03/28/20 24 03/28/2024 CBC W/DIF F RDW 13.2 % 11.0-1 5.0 Not Available [facility] (Lab) [address], [place], [address], 03/29/2024 05:47:19 03/28/20 24 03/28/2024 CBC W/DIF F plt 279 10'3/ uL 150-40 0 Not Available [facility] (Lab) [address], [place], [address], 03/29/2024 05:47:19 03/28/20 24 03/28/2024 CBC W/DIF F MPV 10.8 fL 8.8-12 .1 Not Available [facility] (Lab) [address], [place], [address], 03/29/2024 05:47:19 03/28/20 24 03/28/2024 CBC W/DIF F NRBC's 0.0 % 0.0 Not Available [facility] (Lab) [address], [place], [address], 03/29/2024 05:47:19 03/28/20 24 03/28/2024 CBC W/DIF F absolute NRBCs 0.0 10'3/ uL no refere nce range establ ished Not Available [facility] (Lab) [address], [place], [address], 03/29/2024 05:47:19 03/28/20 24 03/28/2024 CBC W/DIF F neutrophils 59.5 % 34.0-7 3.0 Not Available [facility] (Lab) [address], [place], [address], 03/29/2024 05:47:19 03/28/20 24 03/28/2024 CBC W/DIF F lymphocytes 29.5 % 15.0-5 0.0 Not Available [facility] (Lab) [address], [place], [address], 03/29/2024 05:47:19 03/28/20 24 03/28/2024 CBC W/DIF F monocytes 8.1 % 1.0-15 .0 Not Available [facility] (Lab) [address], [place], [address], 03/29/2024 05:47:19 03/28/20 24 03/28/2024 CBC W/DIF F eosinophils 2.0 % 0.0-8. 0 Not Available [facility] (Lab) [address], [place], [address], 03/29/2024 05:47:19 03/28/20 24 03/28/2024 CBC W/DIF F basophils 0.7 % 0.0-2. 0 Not Available [facility] (Lab) [address] [place], [address], 03/29/2024 05:47:19 03/28/2003/28/2024 CBC W/DIF F immature granulocytes 0.2 % no define d refere nce range Not Available [facility] (Lab) [address] [place], [address], 03/29/2024 05:47:19 03/28/20 24 03/28/2024 CBC W/DIF F absolute neutrophils 2.4 10'3/ uL 1.5-8. 0 Not Available [facility] (Lab) [address], [place], [address], 03/29/2024 05:47:19 03/28/20 24 03/28/2024 CBC W/DIF F absolute lymphocytes 1.2 10'3/ uL 1.0-4. 0 Not Available [facility] (Lab) [address], [place], [address], 03/29/2024 05:47:19 03/28/20 24 03/28/2024 CBC W/DIF F absolute monocytes 0.3 10'3/ uL 0.2-1. 0 Not Available [facility] (Lab) [address], [place], [address], 03/29/2024 05:47:19 03/28/20 24 03/28/2024 CBC W/DIF F absolute eosinophils 0.1 10'3/ uL 0.0-0. 6 Not Available [facility] (Lab) [address] [place], [address], 03/29/2024 05:47:19 03/28/20 24 03/28/2024 CBC W/DIF F absolute basophils 0.0 10'3/ uL 0.0-0. 3 Not Available [facility] (Lab) [address], [place], [address], 03/29/2024 05:47:19 03/28/20 24 03/28/2024 CBC W/DIF F absolute immature granulocytes 0.0 10'3/ uL 0.00-0 .10 3:54 AM: P indic ates parti al resul ts on a panel have been relea sed. Addit ional resul ts will follo w. 3:54 AM: This resul t has been final verif ied. No addit ional or grossman ed resul ts are expec sundeep. Not Available [facility] (Lab) [address] [place], [address], 03/29/2024 05:47:19 03/28/20 24 03/28/2024 LIPID PANEL ,AMA (LDL- CALC) total cholesterol 240 mg/dL 0-199 high Not Available [facility] (Lab) [address] [place], [address], 03/29/2024 05:47:20 03/28/20 24 03/28/2024 LIPID PANEL ,AMA (LDL- CALC) triglyceride s 108 mg/dL 0-150 NCEP Refer ence Value s for Trigl yceri darcy: Katia l: <150 mg/dL Borde rline High: 150 - 199 mg/dL High: 200 - 499 mg/dL Very High: >/= 500 mg/dL Not Available [facility] (Lab) [address] [place], [address], 03/29/2024 05:47:20 03/28/20 24 03/28/2024 LIPID PANEL ,AMA (LDL- CALC) HDL cholesterol 64 mg/dL >40 Not Available [facility] (Lab) [address] [place], [address], 03/29/2024 05:47:20 03/28/20 24 03/28/2024 LIPID PANEL ,AMA (LDL- CALC) LDL cholesterol 154 mg/dL 0-99 high Cutof f value s recom rosanna d by the Natamanda nal Sravani stero l Educa tion Progr am: DARRYL ABLE: Sravani stero l <200 mg/dL LDL <100 mg/dL BORDE RLINE : Sravani stero l 200-2 39 mg/dL LDL 101-1 59 mg/dL HIGHE R RISK: Sravani stero l >240 mg/dL LDL >160 mg/dL , HDL <40 mg/dL Not Available [facility] (Lab) [address] [place], [address], 03/29/2024 05:47:20 03/28/20 24 03/28/2024 LIPID PANEL ,AMA (LDL- CALC) non-HDL cholesterol 176 mg/dL no refere nce range A reaso nable goal for non-H DL sravani stero l is one that is 30 mg/dL highe r than the LDL sravani stero l goal. Not Available [facility] (Lab) [address], [place], [address], 03/29/2024 05:47:20 03/28/20 24 03/28/2024 LIPID PANEL ,AMA (LDL- CALC) chol/HDL ratio 3.8 . 0.0-5. 0 On February 17, 2023, [facility] labor atori jose e grossman ed the equat ion for calcu latin g estim ated low-d ensit y lipop rotei n-cho leste rol (LDL- C) from the Fried fabrizio equat ion to the Colleen mike/Hop kari equat ion. This new equat ion is only valid for lipid panel s with trigl yceri darcy < 400 mg/dL . Studi es have demon strat ed that this new equat ion will impro ve the accur acy of LDL-C , espec ially in scena phillip when LDL-C arpan ntrat ions are relat ively low (< 100 mg/dL ), trigl yceri darcy are eleva sundeep, or patie nt is non-f astin g. Refer ences : - Colleen mckeon, Tod Jc, Lauri Castro , [facility] yeison andrea, Orestes Ortega, Orestes sheppard, [facility] , and Jhonatan Carbajal . 2013. Comp ariso n of a Novel Metho d vs the Fried fabrizio Equat ion for Estim ating Low-D ensit y Lipop rotei n Sravani stero l Level s from the Stand julia Lipid Profi le. SUELLEN: The Journ al of the Ameri can Medic al Assoc iatio n 310 (19): 2060- . - Vivi reddy V, Angy J, Sunshine Díaz, Ashlie Barker, Elo haque R, Mercedes reddy E, Jay ku RS, Carbajal SR, Colleen n SS. Fast ing Versu s Nonfa sting and Low-D ensit y Lipop rotei n Sravani stero l Accur acy. Circu latamanda n. 2017Oct 27;137 (1):1 0-19. Not Available [facility] (Lab) [address] [place], [address], 03/29/2024 05:47:20 03/28/20 24 03/28/2024 CMP(C OMPRE HENSI VE METAB OLIC PANEL ) sodium 139 mmol/ L 133-14 6 Not Available [facility] (Lab) [address] [place], [address], 03/29/2024 05:47:20 03/28/20 24 03/28/2024 CMP(C OMPRE HENSI VE METAB OLIC PANEL ) potassium 4.2 mmol/ L 3.5-5. 1 Not Available [facility] (Lab) [address], [place], [address], 03/29/2024 05:47:20 03/28/20 24 03/28/2024 CMP(C OMPRE HENSI VE METAB OLIC PANEL ) chloride 107 mmol/ L 98-107 Not Available [facility] (Lab) [address] [place], [address], 03/29/2024 05:47:20 03/28/20 24 03/28/2024 CMP(C OMPRE HENSI VE METAB OLIC PANEL ) carbon dioxide 24 mmol/ L 21-31 Not Available [facility] (Lab) [address] [place], [address], 03/29/2024 05:47:20 03/28/20 24 03/28/2024 CMP(C OMPRE HENSI VE METAB OLIC PANEL ) anion gap 8 mmol/ L 4-13 Not Available [facility] (Lab) [address] [place], [address], 03/29/2024 05:47:20 06/03/20 24 03/28/2024 CMP(C OMPRE HENSI VE METAB OLIC PANEL ) blood urea nitrogen 14 mg/dL 7-25 Not Available [facility] (Lab) [address], [place], [address], 03/29/2024 05:47:20 03/28/20 24 03/28/2024 CMP(C OMPRE HENSI VE METAB OLIC PANEL ) creatinine 0.80 mg/dL 0.60-1 .30 Not Available [facility] (Lab) [address], [place], [address], 03/29/2024 05:47:20 03/28/20 24 03/28/2024 CMP(C OMPRE HENSI VE METAB OLIC PANEL ) egfrcr (CKD-epi 2020) 88 mL/mi n/1.7 3_m2 >=60 Not Available [facility] (Lab) [address], [place], [address], 03/29/2024 05:47:20 03/28/20 24 03/28/2024 CMP(C OMPRE HENSI VE METAB OLIC PANEL ) calcium 9.0 mg/dL 8.3-10 .5 Not Available [facility] (Lab) [address], [place], [address], 03/29/2024 05:47:20 03/28/20 24 03/28/2024 CMP(C OMPRE HENSI VE METAB OLIC PANEL ) glucose 92 mg/dL 70-100 Not Available [facility] (Lab) [address], [place], [address], 03/29/2024 05:47:20 03/28/20 24 03/28/2024 CMP(C OMPRE HENSI VE METAB OLIC PANEL ) protein, total 7.0 g/dL 6.4-8. 3 Not Available [facility] (Lab) [address], [place], [address], 03/29/2024 05:47:20 03/28/20 24 03/28/2024 CMP(C OMPRE HENSI VE METAB OLIC PANEL ) albumin 4.0 g/dL 3.5-5. 0 Not Available [facility] (Lab) [address], [place], [address], 03/29/2024 05:47:20 03/28/20 24 03/28/2024 CMP(C OMPRE HENSI VE METAB OLIC PANEL ) ALT 20 units /L 9-43 Not Available [facility] (Lab) [address], [place], [address], 03/29/2024 05:47:20 03/28/20 24 03/28/2024 CMP(C OMPRE HENSI VE METAB OLIC PANEL ) alkaline phosphatase 88 units /L 34-104 Not Available [facility] (Lab) [address], [place], [address], 03/29/2024 05:47:20 03/28/20 24 03/28/2024 CMP(C OMPRE HENSI VE METAB OLIC PANEL ) AST 18 units /L 13-39 Not Available [facility] (Lab) [address], [place], [address], 03/29/2024 05:47:20 03/28/20 24 03/28/2024 CMP(C OMPRE HENSI VE METAB OLIC PANEL ) bilirubin, total 0.8 mg/dL 0.2-1. 2 Not Available [facility] (Lab) [address] [place], [address], 03/29/2024 05:47:20 03/28/20 24 03/28/2024 TSH, REFLE X FREE T4 TSH 2.41 uIU/m L 0.30-5 .33 Not Available [facility] (Lab) [address] [place], [address], 03/29/2024 05:47:21 03/28/20 24 03/28/2024 VITAM IN D, 25-OH (TOTA L D2/D3 ) vitamin D, 25-hydroxy, total 16.2 NG/mL 30.0-1 00.0 low Sugge stive of Defic iency : <20 ng/mL Sugge stive of Insuf ficie ncy: 20-29 ng/mL Sugge stive of Suffi cienc y: 30-10 0 ng/mL Sugge stive of Toxic ity: >150 ng/mL Not Available [facility] (Lab) [address], [place], [address], 03/29/2024 05:47:21 03/28/20 24 03/28/2024 IMAGE GUIDE D PAP AND HPV REGAR DLESS image guided Pap, HPV regardless of Pap result SEE RESULT S BELOW CASE REPOR T: Cytol ogy Gynec ologi kapil Repor t Case: [id number] Autho lian g Provi ramiro: Rebecca Garcia MD Colle cted: 03/28 1053 Order ing Locat ion: [place] Patho logy Recei ismael: 03/29 1048 First Scree n: Malissa Meek , CT Rescr een: Maria Teresa Dunlap ret, CT Speci men: Scree elizabeth Pap - Image d, Cervi x STATE MENT OF ADEQU ACY: Satis facto ry for evalu ation Trans forma tion zone compo nent absen t The absen ce of an endoc ervic al compo nent was confi rmed by an addit ional scree ner. ----- ----- ----- ----- ----- ----- ----- ----- ----- ----- ----- ----- ----- ----- ----- ----- ----- ---- FINAL DIAGN OSIS: Negat liu for Intra epith elial Geneva mckeon or Loli chin (NIL) . Patsy bhatt d by Maria Teresa Dunlap ret, CT on 024 at 2:53 PM ----- ----- ----- ----- ----- ----- ----- ----- ----- ----- ----- ----- ----- ----- ----- ----- ----- ---- HPV RESUL TS: HPV mRNA E6/E7 : No HPV mRNA Detec sundeep NOTE: This high risk HPV mRNA assay detec ts fourt een high- risk HPV types (16, 18, 31, 33, 35, 39, 45, 51, 52, 56, 58, 59, 66, 68) witho ut diffe renti ation . COMME NT: This speci men was revie wed by a Cytot echno logis t and/o r Patho logis t (as indic ated in this repor t) after evalu ation using the Thinp rep Imagi ng Syste m. CLINI KAPIL INFOR MATIO N: Menst rual Statu s: LMP (if appli cable ): Clini kapil Histo ry/Pr eviou s Pap: Type of Neopl trevor (if appli cable ): Signi fican t Clini kapil Findi ngs: Other Histo ry: Hormo phill (if appli cable ): PAP EDUCA ERIC L NOTE: The Pap Test is a scree elizabeth test with an inher ent false negat liu rate. Liqui d-bas ed sampl ing may decre ase, but will not elimi geri, false negat liu resul ts. A negat liu resul t does not precl ude the prese nce and/o r devel opmen t of disea se, since the prese nce of abnor mal cells in the sampl e depen ds on the locat ion of the lesio n and sampl ing techn ique. Farrukh nued regul ar scree elizabeth is the best metho d of cance r preve ntion . If repor sundeep cytol ogic findi ng do not corre late with physi kapil and/o r histo rical findi ngs, [facility] er inves tigat ion is recom rosanna d, as clini jossy woods nted. Not Available [facility] (Lab) [address], [place], [address], 03/31/2024 15:56:52 05/05/20 23 05/05/2023 US, pelvi s No observ ation record ed. [email or web address] [facility] [address] [place], [address], 05/05/2023 15:07:01 05/05/20 23 05/05/2023 US, trans vagin al No observ ation record ed. [email or web address] [facility] [address], [place], [address], 05/05/2023 15:06:52 05/05/20 23 05/05/2023 US, pelvi s No observ ation record ed. [email or web address] [address], [place], [address], 05/05/2023 23:18:16 05/27/20 23 05/27/2023 XR, abdom en No observ ation record ed. [email or web address] [facility] [address], [place], [address], 05/27/2023 20:11:33 05/28/20 23 05/28/2023 XR, cysto gram No observ ation record ed. [email or web address] [facility] [address], [place], [address], 05/28/2023 21:55:10 06/05/20 23 06/05/2023 MAMMO , scree elizabeth, bilat eral No observ ation record ed. [facility] [address], [place], [address], 06/11/2023 07:07:26 07/13/20 24 07/13/2024 MAMMO , scree elizabeth, bilat eral No observ ation record ed. [facility] [address], [place], [address], 07/13/2024 19:34:29 Result Notes None recorded. Problems Name Problem SNOMED Code Status Onset Date Resolution Date Notes Provider Name and Address Organization Details Recorded Time Finding of menstrua l bleeding Completed 201811/19/2020 Menorrha margaret;Carlos rded Elsewher e: No Locat ion: [facility] S ource: [employer] eron: N Myles ce ID: 0001 Kit lable Time: 08:15:00 AM Irena Stern MD [address], [place], [address], [facility] 18:09:54 Pain in female genitali a Completed 201811/19/2020 Dysmenor richard, unspecif ied;Carlos rded Elsewher e: No Locat ion: [facility] S ource: [employer] eron: N Myles ce ID: [id number] Kit lable Time: 04:15:00 PM Irena Stern MD [address], [place], [address], [facility] 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 18:10:[address] Concept Completed 201811/19/2020 Encntr for program director substance abuse exam (general ) (routine ) w/o abn findings ;Recorde d Elsewher e: No Locat ion: [facility] S ource: EHR Director Of [employer] Work eron: N Myles ce ID: 0001 Kit lable Time: 01:30:00 PM MD [address], [place], [address], [facility] 18:10:[address] Concept Completed 201711/19/2020 Encntr for general adult medical exam w/o abnormal findings ;Recorde d Elsewher e: No Locat ion: [facility] S ource: EHR Director Of [employer] Work eron: N Myles ce ID: 0001 Kit lable Time: 08:15:00 AM Irena Stern MD [address], [place], [address], [facility] 18:10:17 Breast lump [id number] Completed 201411/19/2020 Lump in breast;R ecorded Elsewher e: No Locat ion: [facility] S ource: EHR Director Of [employer] Work eron: Mike Bueon ce ID: 0001 Kit lable Time: 04:00:00 PM Irena Stern MD [address], [place], [address], [facility] 18:09:48 Screenin g for malignan t neoplasm of cervix Completed 201111/19/2020 Screenin g for malignan t neoplasm s of the cervix;R ecorded Elsewher e: No Locat ion: [facility] S ource: EHR Director Of [employer] Work eron: Mike Bueno ce ID: 0001 Kit lable Time: 10:00:00 AM Irena Stern MD [address], [place], [address], [facility] 18:10:08 Adult health examinat ion Completed 201311/19/2020 ROUTINE MEDICAL EXAM;Rec orded Elsewher e: No Locat ion: [facility] S ource: EHR Director Of [employer] Work eron: N Myles ce ID: 0001 Kit lable Time: 02:30:00 PM Irena Stern MD [address], [place], [address], [facility] 1 18:09:44 Screenin g for malignan t neoplasm of rectum Completed 201511/19/2020 Encounte r for screenin g for malignan t neoplasm of rectum;R ecorded Elsewher e: No Locat ion: [facility] S ource: EHR Director Of [employer] Work eron: N Practi ce ID: 0001 Kit lable Time: 04:30:00 PM Irena Stern MD [address], [place], [address], [facility] 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 Race Delivery Type [id number] Vaginal Delivery Louie Calculation Initial Louie Date Initial Exam Date Initial Exam Provider Initial Ultrasound Date Last Menstrual Period Date Ultra Sound Weeks Gestation 0 Eighteen To Twenty Week Louie Update Ultra Sound Date Fundal Height At Umbil Quickening Date Ultra Sound Latest Weeks Gestation Final Louie Confirmed By Final Louie Confirmed Date Final Louie Date Ultra Sound Latest Days Gestation 0 0 Menstrual History Last Menstrual Date Menses Monthly On Bcp Conception Prior Menses Frequency Hcg Plus Date Menarche Onset Age Delivery Information Delivery Date Delivery Type Labor Anesthesia Weeks Gestation Incision Type Labor Labor Length Hrs Delivered By Post Complications Tubal Sterilization Discharge Date Comments 3 Discharge Information Feeding Method Contraceptive Method Maternal HG B and HCT Levels Ob Episode Information Episode Created Date Number of Fetuses Patient Bloodtype Patient rh Status Prepregnancy Weight lbs Domestic Partner Domestic Partner Phone Father Name Packager And Strapper Status 11/19/19 21 1 CLOSED Fetus Data First Name Last Name Admitted to NICU Weight (g) Sex Living Outcome Pediatric Complications Fetus ID Race Codes Race Delivery Type 7441 Vaginal Delivery Louie Calculation Initial Louie Date Initial Exam Date Initial Exam Provider Initial Ultrasound Date Last Menstrual Period Date Ultra Sound Weeks Gestation 0 Eighteen To Twenty Week Louie Update Ultra Sound Date Fundal Height At Umbil Quickening Date Ultra Sound Latest Weeks Gestation Final Louie Confirmed By Final Louie Confirmed Date Final Louie Date Ultra Sound Latest Days Gestation 0 0 Menstrual History Last Menstrual Date Menses Monthly On Bcp Conception Prior Menses Frequency Hcg Plus Date Menarche Onset Age Delivery Information Delivery Date Delivery Type Labor Anesthesia Weeks Gestation Incision Type Labor Labor Length Hrs Delivered By Post Complications Tubal Sterilization Discharge Date Comments 6 Discharge Information Feeding Method Contraceptive Method Maternal HG B and HCT Levels
--- OUTSIDE RECORDS SUMMARY | 2025-05-01 09:35 | XMS_ITS | Clinical Summary ---
Author Organization [facility] Address [facility] [place] [address] Care Team Providers Care Pitch Filler Name Role Phone Irena Stern MD Unavailable [phone] Hanna Mckeon MD Primary Care Provider + Allergies Active Allergy Reactions Criticality Noted Date Comments Amoxicillin Rash Medium 03/12/2021 Penicillins Rash Medium 03/12/2021 Hydrocodone-Acetaminophen Rash Medium 03/12/2021 Rash, headache, HTN Medications cholecalciferol (VITAMIN D-3) 46117 unit tablet Take 50,000 Units by mouth [...] on file Legal Sex Female 4:22 AM [employer] Gender Identity Not on file Sexual Orientation Not on file Obstetrics History Plan of Treatment Not on file Insurance [facility] CHO[employer] PLUS [facility] CHO[employer] PLUS Care Teams Pitch Filler Relationship Specialty Start Date End Date Hanna Mckeon MD PCP - General Family Medicine 02/22/21 Irena Stern MD Referring Physician Obstetrics and Gynecology 02/12/21
--- NOTE | 2025-05-01 11:15 | NEURO_ITS ---
Impression: # Complains of left upper extremity discomfort. ? # Normal motor and sensory Nerve Conduction Study. ? # No Carpal Tunnel Syndrome or ulnar neuropathy. ? # Normal needle/EMG exam. ? # Clinical correlation recommended. Nerve Conduction Studies ?Stim Site NR Peak (ms) P-T Amp (?V) Site1 Site2 Delta-P (ms) Dist (cm) Skip (m/s) Left Median Anti Sensory (2-3nd Digit) Wrist ? 2.8 53.9 Wrist 2-3nd Digit 2.8 14.0 50 Wrist ? 2.9 66.3 Wrist 2-3nd Digit 2.8 14.0 50 Left Radial Anti Sensory (Base 1st Digit) Wrist ? 1.8 37.3 Wrist Base 1st Digit 1.8 0.0 Left Ulnar Anti Sensory (5th Digit) Wrist ? 2.5 71.8 Wrist 5th Digit 2.5 14.0 56 ?Stim Site NR Onset (ms) O-P Amp (mV) Site1 Site2 Delta-0 (ms) Dist (cm) Skip (m/s) Left Median Motor (Abd Poll Brev) Wrist ? 3.2 7.0 Elbow Wrist 5.2 30.0 58 Elbow ? 8.4 6.6 Left Ulnar Motor (Abd Dig Minimi) Wrist ? 2.7 10.4 A Elbow Wrist 5.0 29.0 58 A Elbow ? 7.7 9.6 B Elbow Wrist 3.4 20.0 59 B Elbow ? 6.1 9.3 Electromyography ?Side Muscle Nerve Root Ins Act Fibs Amp Dur Recrt Comment Left 1stDorInt Ulnar C8-T1 Nml Nml Nml Nml Nml Left Ext Indicis Radial (Post Int) C7-8 Nml Nml Nml Nml Nml Left Ext Digitorum Radial (Post Int) C7-8 Nml Nml Nml Nml Nml Left BrachioRad Radial C5-6 Nml Nml Nml Nml Nml Left PronatorTeres Median C6-7 Nml Nml Nml Nml Nml Left Abd Poll Brev Median C8-T1 Nml Nml Nml Nml Nml Left ABD Dig Min Ulnar C8-T1 Nml Nml Nml Nml Nml Left FlexPolLong Median (Ant Int) C7-8 Nml Nml Nml Nml Nml Left Abd Poll Long Radial (Post Int) C7-8 Nml Nml Nml Nml Nml
== END 2025-05-01 09:26 | disposition home or self-care (01) ==
LOC: ANHNEURO 09:28
PROVIDERS: PCP Family Medicine; Visit Provider Plastic Surgery
DX: G56.22 Lesion of ulnar nerve, left upper limb (principal)
CPT/HCPCS: 95886; 95909

== ENCOUNTER 2025-07-18 07:14 | Outpatient (CLI) | payer OTHER, SELFPAY ==
--- NOTE | ~2025-07-18 | MM_ITS ---
EXAMINATION: MM screening [facility] w [facility] HISTORY: Screening TECHNIQUE: Craniocaudal and mediolateral oblique 3-D tomosynthesis images were obtained and synthetic 2-D images were generated. CAD analysis was submitted and interpreted. COMPARISON: Comparison to multiple prior studies sequentially, with oldest reviewed study dated 01/03/2021. BREAST PARENCHYMAL COMPOSITION: There are scattered areas of fibroglandular density. FINDINGS: There is no evidence of suspicious mass, calcification, or architectural distortion to suggest malignancy in either breast. Scattered benign-appearing calcifications are present. Multiple bilateral breast masses present. IMPRESSION: 1. No mammographic evidence of malignancy. 2. Recommend routine screening mammography in one year. BI-RADS Category 2: Benign finding(s). Reviewed, dictated and finalized at location B.
== END 2025-07-18 07:15 | disposition home or self-care (01) ==
LOC: MICIMG 07:14
PROVIDERS: PCP Family Medicine; Visit Provider Family Medicine
DX: Z12.31 Encounter for screening mammogram for malignant neoplasm of breast (principal)
CPT/HCPCS: 77063; 77067